=== PATIENT | male | born 1955 | race Caucasian/White ===

== ENCOUNTER 2017-02-21 09:09 | Outpatient (CLI) | payer OTHER ==
--- NOTE | ~2017-02-21 | HEMODYNAMI ---
PATIENT:GAGAN MIDDLETON MEDICAL RECORD: [id number] : 57 LOCATION:[facility] ADMISSION DATE: 02/21/17 Generatedon:02/21/201713:24 Patient name: GAGAN MIDDLETON Patient #: [id number] S SN: : 1955 Date of study: 02/21/2017 Page: Of Hemodynamic Procedure Report Patient Data Patient Demographics Procedure consent was obtained First Name: GAGAN Gender: Male Last Name: EMI : 1955 Middle Initial: R Age: 62 year(s) Patient #: [id number] Race: Additional ID: [id number] Contact details [address]: [address] [place] [address] State: [place] City: [place] Zip code: [address] Past Medical History Allergies: No known allergies Admission Admission Data Admission Date: 02/21/2017 Admission Time: 9:09 Lab Results Lab Result Date: 02/21/2017 Lab Result Time: 10:10 Biochemistry Name Units Result Min Max BUN mg/dl 10 --(-*--)-- 7 18 Creatinine mg/dl 1.4 --(----)*- 0.6 1.3 CBC Name Units Result Min Max Hematocrit % 41.9 -*(----)-- 42 54 Hemoglobin g/dl 14.3 --(*---)-- 13.5 17.5 Procedure Procedure Types Cath Procedure Diagnostic Procedure [facility] w/Coronaries PCI Procedure Coronary Stent Initial Miscellaneous Procedures Moderate Sedation up to 30 minutes Peripheral Cath Diagnostic Procedure Cath Peripheral Mxroj-Oxcaapg-Dtq-Off Procedure Description Procedure Date Procedure Date: 02/21/2017 Procedure Start Time: 12:52 Procedure End Time: 13:22 Procedure Staff Name Function Alex Metzger MD Performing Physician Hudson Worrell RN Nurse Abundio John RT Scrub Warner Hermosillo RT Monitor Procedure Data Cath Procedure Fluoroscopy Diagnostic fluoroscopy Total fluoroscopy Time: 5.6 time: 5.6 min min Diagnostic fluoroscopy Total fluoroscopy dose: dose: 466.78 mGy 466.78 mGy Contrast Material Contrast Material Type Amount (ml) Isovue 300 158 Entry Location Entry Primary Successful Side Size Upsize Upsize Entry Closure Succes sful Closure Location (Fr) 1 (Fr) 2 (Fr) Remarks Device Remarks Femoral Right 5 Fr 6 Fr Exoseal artery Short Estimated blood loss: 10 ml Diagnostic catheters Device Type Used For End Catheter Placement Cordis 5Fr 3DRC Catheter Procedure (MP) Cordis 5Fr JL 4.0 Procedure Catheter (MP) Cordis 5Fr Pigtail Procedure Catheter (MP) Cordis 5Fr Pigtail Procedure Catheter (MP) Procedure Complications No complications Procedure Medications Medication Administration Route Dosage Oxygen NC 2 l/min Heparin Flush Bag added to field 2 bags (1000units/500ml NS) 0.9% NaCl I.V. 100 ml/hr Fentanyl I.V. 50 mcg Versed I.V. 1 mg Heparin Bolus I.V. 4000 units Integrilin (Bolus I.V. 7.3 ml 2mg/ml) Fentanyl I.V. 50 mcg Versed I.V. 1 mg Plavix P.O. 600 mg Hemodynamics Rest HGB: 14.3 (g/dl) Heart Rate: 63 (bpm) Snapshots Pre Cath Intra NCS Post Cath Vital Signs Time Heart Resp SPO2 NIBP (mmHg) Rhythm Pain Sedation Rate (ipm) (%) Status Level (bpm) 12:39:49 64 17 98 127/69(103) NSR 0 (11) 10(A) , No pain 12:44:05 61 18 96 122/72(92) NSR 0 (11) 10(A) , No pain 12:48:23 59 17 96 114/66(89) NSR 0 (11) 10(A) , No pain 12:52:39 61 17 97 113/73(96) NSR 0 (11) 9(A) , No pain 12:56:55 63 17 94 116/66(96) NSR 0 (11) 9(A) , No pain 13:01:11 63 18 95 121/65(98) NSR 0 (11) 9(A) , No pain 13:05:37 66 17 95 103/48(72) NSR 0 (11) 9(A) , No pain 13:09:49 67 18 94 110/68(91) NSR 0 (11) 9(A) , No pain 13:14:03 70 18 93 110/70(92) NSR 0 (11) 9(A) , No pain 13:18:17 69 17 96 117/68(107) NSR 0 (11) 9(A) , No pain 13:22:27 70 14 94 116/73(92) NSR 0 (11) 9(A) , No pain Medications Time Medication Route Dose Verified Delivered Reason Notes Effectiveness by by 12:40:27 Oxygen NC 2 Alex Treviño Per physician l/min Domenica Worrell RN 12:48:22 Heparin Flush added 2 Alex Treviño used for Bag to bags Domenica Worrell RN procedure (1000units/500ml field NS) 12:50:25 0.9% NaCl I.V. 100 Alex Treviño Per physician ml/hr Domenica Worrell RN 12:50:32 Fentanyl I.V. 50 Alex Treviño for sedation mcg Domenica Worrell RN 12:50:39 Versed I.V. 1 mg Alex Treviño for sedation Domenica Worrell RN 13:03:40 Heparin Bolus I.V. 4000 Alex Treviño for units Domenica Worrell RN anticoagulation 13:03:53 Integrilin I.V. 7.3 Alex Treviño for (Bolus 2mg/ml) ml Domenica Worrell RN antiplatelet therapy 13:03:58 Fentanyl I.V. 50 Alex Treviño for sedation mcg Domenica Worrell RN 13:04:03 Versed I.V. 1 mg Alex Treviño for sedation Domenica Worrell RN 13:20:42 Plavix P.O. 600 Alex Treviño for mg Domenica Worrell RN antiplatelet therapy Procedure Log Time Note 12:21:55 Informed consent obtained and on chart 12:21:58 Diagnostic Cath Status : Elective 12:22:27 Abundio LEVINE(R) (CV) sent for patient. Start room use. 12:22:29 Time tracking: Regular hours 12:22:34 Plan of Care:Hemodynamics will remain stable., Cardiac rhythm will remain stable., Comfort level will be maintained., Respiratory function will remain adequate., Patient/ family verbilizes understanding of procedure., Procedure tolerated without complication., Recovers from procedure without complications.. 12:30:38 Patient received from Pre/Post Procedure Room to CCL 3 Alert and oriented. Tansferred to table in Supine position. 12:30:39 Warm blankets applied, and eric hugger turned on for patient comfort. 12:30:39 Correct patient and procedure confirmed by team. 12:30:51 ECG and BP/O2 sat monitors applied to patient. 12:31:35 H&P Date Dictated: 02/21/2017 New H&P dictated by physician.. 12::37 Pre-procedure instructions explained to patient. 12::38 Pre-op teaching completed and patient verbalized understanding. 12:31:40 Family in waiting room. 12:31:41 Patient NPO since Midnight. 12:38:37 Vital chart was started 12:40:27 Oxygen 2 l/min NC was administered by Hudson Worrell RN; Per physician; 12:42:40 Baseline sample Acquired. 12:42:45 Rhythm: sinus rhythm 12:42:56 Patient allergic to No known allergies 12:43:03 Is the patient allergic to Iodine/contrast media? No. 12:43:06 Is patient on blood thinner?No 12:43:07 Patient diabetic? No. 12:43:10 Previous problem with sedation/anesthesia? No ? 12:43:11 Snore? Yes 12:43:11 Sleep apnea? No 12:43:12 Deviated septum? No 12:43:15 Opens mouth fully? Yes 12:43:15 Sticks out tongue? Yes 12:43:19 Airway obstruction? Yes COPD 12:43:24 Dentures? Yes ? 12:48:22 Heparin Flush Bag (1000units/500ml NS) 2 bags added to field was administered by Hudson Worrell RN; used for procedure; 12:48:32 Pre procedure: right dorsailis pedis pulse 1+ Palpable, but thready & weak; easily obliterated 12:48:35 Patient pain scale 0/10 ?. 12:48:41 IV patent on arrival in left antecubital with 0.9% NaCl at [facility]. 12:49:31 Lab Result : BUN 10 mg/dl 12:49:31 Lab Result : Creatinine 1.4 mg/dl 12:49:34 Zero performed for pressure channel P1 12:49:39 Lab results completed and on chart. 12:49:41 Right groin area was prepped with chlora-prep and draped in sterile fashion 12:49:43 Sharps counted by scrub and verified by R.N. 12:49:43 Alarms reviewed by R. N. 12:49:48 Use device set Femoral Dx 12:49:49 Tegaderm 4 x 4 opened to sterile field. 12:49:50 Acist Hand Control opened to sterile field. 12:49:50 Acist Manifold opened to sterile field. 12:49:51 Acist Syringe opened to sterile field. 12:49:52 Bag Decanter opened to sterile field. 12:49:52 Medline Cath Pack opened to sterile field. 12:49:53 Terumo 5Fr Kingston Sheath opened to sterile field. 12:49:53 St Jas 260cm J .035 wire opened to sterile field. 12:49:54 Diagnostic Infinity 5Fr Multipack catheter opened to sterile field. 12:50:03 Physician arrived 12:50:03 --------ALL STOP TIME OUT------ 12:50:04 Final Timeout: patient, procedure, and site verified with staff and physician. All members of the team are in agreement. 12:50:05 Right groin site verified by team. 12:50:07 Physical assessment completed. ASA score P 2 - A patient with mild systemic disease as per Alex Metzger MD. 12:50:10 Sedation plan: IV Moderate Sedation Versed, Fentanyl 12:50:25 0.9% NaCl 100 ml/hr I.V. was administered by Hudson Worrell RN; Per physician; 12:50:32 Fentanyl 50 mcg I.V. was administered by Hudson Worrell RN; for sedation; 12:50:39 Versed 1 mg I.V. was administered by Hudson Worrell RN; for sedation; 12:50:42 Lab Result : Hemoglobin 14.3 g/dl 12:50:42 Lab Result : Hematocrit 41.9 % 12:52:04 Procedure started. 12:52:05 Full Disclosure recording started 12:52:08 Local anesthetic to right femoral artery with Lidocaine 2% by Alex Metzger MD.INITIAL ACCESS ONLY 12:52:15 A 5 Fr sheath was inserted into the Right Femoral artery 12:52:55 PERCUTANEOUS ENTRY 19GA needle opened to sterile field. 12:55:13 A Cordis 5Fr 3DRC Catheter (MP) was advanced over the wire and used for Procedure. 12:56:23 RCA angiography performed. 12:56:25 Catheter exchanged over wire. 12:56:27 A Cordis 5Fr JL 4.0 Catheter (MP) was advanced over the wire and used for Procedure. 12:56:41 LCA angiography performed. 12:57:50 Terumo 6Fr Kingston Sheath opened to sterile field. 12:57:51 Mejia Whisper J 300cm 0.014 guide wire opened to sterile field. 12:57:51 tab ticketbroker BasixCompak Inflation Kit opened to sterile field. 12:57:57 Catheter exchanged over wire. 12:58:01 A Cordis 5Fr Pigtail Catheter (MP) was advanced over the wire and used for Procedure. 12:58:41 [employer] Launcher 6Fr AR 2.0 SH guide catheter opened to sterile field. 12:59:19 LV gram done using WOODS 12:59:23 Injector settings: Ml/sec: 10, Volume: 20, 12:59:32 EF : 60 % 12:59:43 Catheter exchanged over wire. 12:59:54 Sheath upsized to a 6 Fr Short. 12:59:59 6 Fr ar 2 guide catheter was inserted over the wire 13:03:40 Heparin Bolus 4000 units I.V. was administered by Hudson Worrell RN; for anticoagulation; 13:03:53 Integrilin (Bolus 2mg/ml) 7.3 ml I.V. was administered by Hudson Worrell RN; for antiplatelet therapy; 13:03:58 Fentanyl 50 mcg I.V. was administered by Hudson Worrell RN; for sedation; 13:04:03 Versed 1 mg I.V. was administered by Hudson Worrell RN; for sedation; 13:05:06 whisper wire advanced. 13:05:08 Wire advanced across lesion. 13:05:58 Inflation number: 2 A Mozec Rx 2.5 x 20 balloon was prepped and advanced across the Dist RCA, then inflated to 13 PATY for 0:10 (min:sec). 13:06:04 Inflation number: 1 The Mozec Rx 2.5 x 20 balloon was reinflated across the Mid RCA, to 13 PATY for 0:10 (min:sec). 13:06:07 Balloon removed over the wire. 13:07:56 Inflation Number: 1 A Marlon OTW 2.5 x 18 stent was prepped and advanced across the Dist RCA. The stent was deployed at 21 PATY for 0:10 (min:sec). 13:08:08 Stent catheter was removed intact over wire. 13:09:22 Inflation Number: 2 A Marlon OTW 3.5 x 18 stent was prepped and advanced across the Mid RCA. The stent was deployed at 23 PATY for 0:10 (min:sec). 13:09:49 Stent catheter was removed intact over wire. 13:09:50 Wire removed. 13:09:50 Guide catheter removed. 13:10:03 A Cordis 5Fr Pigtail Catheter (MP) was advanced over the wire and used for Procedure. 13:12:15 Abdominal angiogram w/ runoff was performed. 13:13:17 Left leg runoff performed. 13:14:13 Right leg runoff performed. 13:14:22 Catheter removed. 13:14:33 Cordis 6Fr Exoseal opened to sterile field. 13:14:44 Sheath removed intact; hemostasis achieved with Exoseal to the Right Femoral artery. 13:14:46 Procedure ended.(Physican Out) 13:15:32 Fluoroscopy time 05.60 minutes. 13:15:40 Flurop Dose total: 466.78 13:15:40 Fluoroscopy dose: 466.78 mGy 13:17:30 Contrast amount:Isovue 300 158ml. 13:17:31 Sharps counted by scrub and verified by R.N. 13:17:34 Insertion/operative site no bleeding no hematoma. 13:17:38 Post-op/insertion site Right Femoral artery dressed using a 4 x 4 and Tegaderm. 13:17:44 Post right femoral artery:stable, soft, clean and dry 13:17:45 Post Procedure Pulses reassessed and unchanged 13:17:48 Post-procedure physical assessment completed. ASA score P 2 - A patient with mild systemic disease as per Alex Metzger MD. 13:17:50 Post procedure rhythm: unchanged. 13:17:52 Estimated blood loss: 10 ml 13:17:53 Post procedure instruction explained to patient.Patient verbalizes understanding. 13:17:53 Patient needs reinforcement of post procedure teaching. 13:18:26 Procedure type changed to Cath procedure, Diagnostic procedure, LHC, LHC w/Coronaries, PCI procedure, Coronary Stent Initial, Miscellaneous Procedures, Moderate Sedation up to 30 minutes, Peripheral Cath Diagnostic Procedure, Cath Peripheral, Yxgju-Gpbxlbd-Krk-Off 13:20:42 Plavix 600 mg P.O. was administered by Hudson Worrell RN; for antiplatelet therapy; 13:22:13 Procedure and supply charges have been captured, reviewed, submitted and are correct. 13:22:18 Procedure Complication : No complications 13:22:20 Vital chart was stopped 13:22:21 See physician's report for complete and final results. 13::22 Report given to Pre/Post Procedure Room. 13::26 Patient transfered to Pre/Post Procedure Room with Stretcher. 13:22:30 Procedure ended. 13:22:30 Full Disclosure recording stopped 13:23:08 End room use (Document Last) Intervention Summary Intervention Notes Time ActionType Lesion and Equipment Action# Pressure Duration Attributes Used 13:05:58 Inflate Dist RCA Mozec Rx 2 13 00:10 balloon 2.5 x 20 balloon 13:06:04 Reinflate Mid RCA Mozec Rx 1 13 00:10 balloon 2.5 x 20 balloon 13:07:56 Place stent Dist RCA Marlon OTW 1 21 00:10 2.5 x 18 stent 13:09:22 Place stent Mid RCA Marlon OTW 2 23 00:10 3.5 x 18 stent Device Usage Item Name Manufacture Quantity Catalog Hospital Part Current Minim al Lot# / Number Charge Number Stock Stock Serial# Code Tegaderm 4 x 3M 1 [id number] 470383 736334 5 4 Acist Hand Acist 1 93599 016607 348954 582758 5 Control Medical Systems Inc Acist Acist 1 13627 803261 763194 744795 5 Manifold Medical Systems Inc Acist Acist 1 70088 924001 875416 056953 20 Syringe Medical Systems Inc Bag Decanter Microtek 1 2002S 599485 36242 329322 5 Medical Inc. Medline Cath Cardinal 1 [id number] 992972 65457 548688 5 Pack Health Terumo 5Fr Terumo 1 [id number] 244979 981832 717995 [address] Jas 1 539379 758045 253584 333892 30 260cm J .035 wire Diagnostic Cardinal 1 [id number] 415077 27157 961447 30 Infinity 5Fr Health Multipack catheter PERCUTANEOUS Cook Medical 1 [id number] 371119 745976 5 ENTRY 19GA needle Cordis 5Fr Cardinal 1 [id number] 5 3DRC Health Catheter (MP) Cordis 5Fr Cardinal 1 049680 5 JL 4.0 Health Catheter (MP) Terumo 6Fr Terumo 1 [id number] 203059 071931 551087 40 Kingston Sheath Mejia Mejia 1 [id number] 289830 297065 064289 5 Whisper J Vascular 300cm 0.014 guide wire Merit Merit 1 [id number] 505314 239724 285394 15 BigTwist Medical Inflation Kit Cordis 5Fr Cardinal 1 898426 5 Pigtail Health Catheter (MP) Medtronic Medtronic 1 [id number] 267314 32968 841915 1 Launcher 6Fr AR 2.0 SH guide catheter Mozec Rx 2.5 Cardinal 1 [id number] 178806 82816 794598 5 UMOA88 x 20 balloon Health Mayview OTW 2.5 Medtronic 1 [id number] 426494 59659 477480 5 [id number] x 18 stent Marlon OTW 3.5 Medtronic 1 [id number] 130146 4385028 237333 5 [id number] x 18 stent Cordis 6Fr Cardinal 1 [id number] 451839 080633 276013 10 [facility] OGPlanet Signature Audit [place] Stage Time Signature Unsigned Intra-Procedure 02/21/2017 Warner Hermosillo 1:24:26 PM RT(R) Signatures Monitor : Warner Hermosillo RT Signature : Date : Time : [facility] [address] [place] [address]
[~2017-02-21 09:09] MED LIST: ADVAIR HFA [SP]12 GM INH; ALDACTONE25 MG PO; ANORO ELLIPTA1 EACH INH; ASPIRIN 81 MG E81 MG PO; ATIVAN1 MG PO; CARAFATE1 G PO; CARAFATE1 G/10 ML PO; CARDURA4 MG PO; CELEXA40 MG PO; CYMBALTA60 MG PO; DECADRON4 MG PO; EFFEXOR75 MG PO; FLOMAX0.4 MG PO; IPRAT-ALBUT 0.5-3 ML NEB; LASIX20 MG PO; LEVAQUIN750 MG PO; LUNESTA1 MG PO; LYRICA50 MG PO; MEDROL DOSE PACK4 MG PO; MUCINEX600 MG PO; MULTI-DAY VITAM1 TAB PO; NIFEDIPINE ER60 MG; NORCO 10/325 TA1 TA1 PO; PEPCID40 MG PO; PERCOCET 10/3251 TA1 PO; PERFOROMIS20 MCG/21 NEB; PLAVIX75 MG PO; PRAVACHOL40 MG PO; PROTONIX40 MG PO; PROVENTIL HFA6.7 GM INH; PROZAC20 MG PO; PULMICORT FLEX90 MCG INH; PULMICORT0.5 MG/21 INH; QVAR8.7 G1 INH; RANEXA500 MG PO; ROBAXIN-750750 MG PO; SINGULAIR10 MG PO; SPIRIVA18 MCG INH; TOPROL XL25 MG PO; TRIBENZOR 20-51 EACH PO; TRIBENZOR 40-11 EAC1 PO; VENTOLIN HFA18 GM INH; VITAMIN B-1100 M1 PO; ZANTAC150 MG PO
[2017-02-21] MEDS ORDERED: PERCOCET 10/3251 TA1 PO (09:57)
[2017-02-21] MEDS ORDERED: ALDACTONE25 MG PO (10:00)
[2017-02-21 10:13] VITALS: BP 90/54; BMI 26.9
[2017-02-21] MEDS ORDERED: ROBAXIN500 MG PO (10:20)
[2017-02-21 10:26] LABS: BASOPHILS 0.3 % (0-2); EOSINOPHILS 2.2 % (0-7); HEMATOCRIT 41.9 % (42.0-54.0); HEMOGLOBIN 14.3 g/dL (13.5-17.5); IMMATURE GRANULOCYTES 1.6 % (0-5); LYMPHOCYTES 22.1 % (15-50); MCH 33.5 pg (26.0-34.0); MCHC 34.1 g/dL (31.0-37.0); MCV 98.1 fL (80.0-100.0); MEAN PLATELET VOLUME 10.2 fL (7.4-10.4); MONOCYTES 7.6 % (2-11); NEUTROPHILS 66.2 % (40-80); PLATELET COUNT 177 10x3/uL (130-400); RBC 4.27 10x6/uL (4.20-6.10); RDW 16.2 % (11.5-14.5); WBC 9.9 10x3/uL (4.8-10.8)
[2017-02-21 10:40] LABS: ANION GAP 12.4 mmol/L (8-16); CALCIUM 7.8 mg/dL (8.5-10.1); CARBON DIOXIDE 30.6 mmol/L (21.0-32.0); CREATININE - SERUM 1.4 mg/dL (0.6-1.3)
[2017-02-21] MEDS ORDERED: PLAVIX75 MG PO (13:37)
--- NOTE | 2017-02-21 13:42 | NUR ---
RECIEVED TO ROOM VIA STRETCHER FROM TRANSMISSIONS SYSTEMS OPERATOR WITH 6 FR EXOSEAL R/GROIN CDI NO BLEEDING NO HEMATOMA NOTED. INSTRUCTED PATIENT TO KEEP HEAD FLAT ON PILLOW WITH RLE STRAIGHT. REPORTS OF 2 STENTS TO THE RCA AND PATIENT WILL RETURN MONDAY.
--- NOTE | 2017-02-21 13:53 | NUR ---
VSS WITH CHEST PAIN DENIED 6 FR EXOSEAL R/GROIN CDI NO BLEEDING NO HEMATOMA NOTED. FAMILY AT SIDE
--- NOTE | 2017-02-21 13:55 | NUR ---
ANSWERED CALL TO ROOM WITH PATIENT C/O OF NAUSEA. ZOFRAN 4 MG GIVEN IV.
--- NOTE | 2017-02-21 14:41 | NUR ---
CHEST PAIN DENIED WITH R/GROIN CDI NO BLEEDING NO HEMATOMA NOTED. SANDWICH AND SODA TO BEDSIDE WITH TO ASSIST.
--- NOTE | 2017-02-21 14:41 | NUR ---
LEFT VIA WC TO PARKING FOR TRANSPORT HOME NO DISTRESS PAIN DENIED R/GROIN CDI
--- NOTE | 2017-02-21 15:42 | NUR ---
R/GROIN CDI NO BLEEDING NO HEMATOMA NOTED VSS WITH NEEDS DENIED
--- NOTE | 2017-02-21 17:00 | NUR ---
HOB ELEVATED 30 DEGREES. RIGHT GROIN 6F EXOSEAL CDI, NO BLEEDING NOTED.
--- NOTE | 2017-02-21 17:19 | NUR ---
LEFT PIV D/C'D WITH CATHETER INTACT, BAND AID TO SITE. UP TO BEDSIDE TO GET DRESSED.
--- NOTE | 2017-02-21 17:32 | NUR ---
DISCHARGE INSTRUCTIONS GIVEN, VERBALIZED UNDERSTANDING. TAKEN OUT VIA WHEELCHAIR BY CATH TRANSACTION MANAGER. LEFT FACILITY WITH FAMILY MEMBER AND ALL PERSONAL BELONGINGS.
--- NOTE | 2017-02-24 16:47 | HP ---
PATIENT: GAGAN SETHI MEDICAL RECORD: [id number] ACCOUNT: [id number] LOCATION:[facility] : 57 ADMISSION DATE: 02/21/17 HISTORY AND PHYSICAL EXAMINATION ADMITTING DIAGNOSES: 1. Unstable angina. 2. Coronary artery disease. 3. Previous PTCA stent multivessel. 4. Chronic obstructive pulmonary disease. 5. Hypertension. 6. Hyperlipidemia. HISTORY OF PRESENT ILLNESS: Mr. Sethi has been having increasing episodes of chest pain, chest discomfort compatible with angina just like his previous angina, status post previous multivessel PTCA stent over the past few years. He as well has severe COPD. His shortness of breath has worsened. PHYSICAL EXAMINATION: GENERAL APPEARANCE: Well-nourished, well-developed, appears stated age. Level of distress, comfortable. PSYCHIATRIC: Mental status, alert, normal affect. Orientation, oriented to time, place and person. EYES: Lids and conjunctiva, noninjected. No discharge, no pallor. ENT: Lips, teeth, gums, normal dentition. Oropharynx, no cyanosis, no pallor. NECK: Carotid arteries, bilateral normal upstroke, no bruits, no thrills. JUGULAR VEINS: No jugular venous pressure or distention. CERVICAL LYMPH NODES: Nontender, nonenlarged. THYROID: Not enlarged. Nontender. No nodules. LUNGS: Respiratory effort, unlabored. CHEST: Normal curvature. No thoracic deformity. No chest wall tenderness. Percussion, resonant. Auscultation, clear. No wheezes, no rales, no rhonchi. CARDIOVASCULAR: Precordial exam, nondisplaced. No heaves or pericardial thrills. Rate and rhythm, regular. Heart sounds, normal S1, normal S2. No S3, no gallop, no rub. Systolic murmur, not heard. Diastolic murmur, not heard. EXTREMITIES: No cyanosis, no edema. Peripheral pulses, full and equal in all extremities, except as noted. No bruits appreciated. ABDOMEN: Soft, nondistended. Normal aorta. No bruit. Nontender. No masses. Liver, nontender, no hepatomegaly. Spleen, nontender, no splenomegaly. MUSCULOSKELETAL: No joint tenderness. No joint swelling. No erythema. NEUROLOGICAL: Normal gait, normal strength, normal tone. SKIN: Warm and dry. REVIEW OF SYSTEMS: The patient reports easy bruising but reports no swollen glands. The patient reports no fever, no night sweats, no significant weight gain, no significant weight loss. No significant exercise tolerance. The patient reports no dry eyes, no irritation, no vision change. Patient reports no difficulty hearing and no ear pain. Patient reports no frequent nose bleeds or nose and sinus problems. Patient reports on arm pain on exertion. No shortness of breath while lying down. No history of heart murmur. Patient reports no cough, no wheezing or coughing up blood. Patient reports no abdominal pain, no vomiting. Normal appetite. No diarrhea and not vomiting blood. No nausea and no constipation. Patient reports no incontinence. No difficulty urinating. No hematuria. No increased frequency. Patient reports no muscle aches. No weakness, no arthralgias, no back pain. No swelling of the HISTORY AND PHYSICAL [id number] GAGAN SETHI extremities. Patient reports no abnormal mole, no jaundice, no rashes. Reports no loss of consciousness. No weakness and no numbness. No seizures, dizziness, or headaches. The patient reports no depression, no sleep disturbance, feeling safe in a relationship and no alcohol abuse. Patient reports on fatigue. Reports no runny nose or sinus pressure. No itching, no hives, and no frequent sneezing. OVERALL IMPRESSION: Increasing anginal symptomatology. Most likely has recurrent hemodynamically significant coronary artery disease. We will proceed with coronary angiography. Further care depends upon findings of the angiography. TRANSINT:[id number] Voice Confirmation ID: [id number] DOCUMENT ID: [id number] ROXANNE MELCHOR MD at 1647 CC: [id number] DICTATION DATE: 02/21/1743 PLASTIC CARD GRADER CARDROOM: 02/21/17 0858 DEP CLI 02/21/17 [address] [id number] [place] [address]
--- NOTE | 2017-03-24 16:56 | OP ---
PATIENT NAME: GAGAN MIDDLETON MEDICAL RECORD: [id number] :57 LOCATION:D.CAT ADMISSION DATE: SURGEON: ROXANNE MELCHOR MD DATE OF OPERATION: 02/21/2017 PROCEDURE: 1. Aortofemoral runoff. 2. Abdominal aortography. INDICATION: Claudication and peripheral vascular disease. PROCEDURE IN DETAIL: After informed consent was obtained and after detailed explanation of risks, benefits as well as alternative therapies, the patient elected to proceed with angiogram and aortofemoral runoff. The catheter was advanced to the aorta, pulled down for aortofemoral runoff. FINDINGS: The abdominal aortography reveals no significant abdominal aortic disease, no renal artery stenosis. No dissection or aneurysm formation. RIGHT LEG: A. Iliac: The common iliac has moderate irregularities, but no flow-limiting stenosis. Internal and external iliacs have only mild irregularities. B. Femoral system: The common superficial and deep femoral have moderate irregularities, but no flow-limiting stenosis. C. Popliteal and infrapopliteal vessels are patent, although diffusely diseased, with 3 vessels runoff to the foot. LEFT LEG: A. Iliac: The common iliac has moderate irregularities, but no flow-limiting stenosis. Internal and external iliacs have only mild irregularities. B. Femoral system: The common superficial and deep femoral have moderate irregularities, but no flow-limiting stenosis. C. Popliteal and infrapopliteal vessels are patent, although diffusely diseased, with 3 vessels runoff to the foot. OVERALL IMPRESSION: Moderate disease of the common iliacs, but no flow-limiting stenosis. No disease elsewise. Continue medical management of peripheral vascular disease and peripheral risk factors. TRANSINT:[id number] Voice Confirmation ID: [id number] DOCUMENT ID: [id number] ROXANNE MELCHOR MD at 1656 CC: [id number] DICTATION DATE: 03/09/17 1235 VOCATIONAL HORTICULTURE INSTRUCTOR: 03/09/17 1251 [facility] CLI 02/21/17 [place] [id number]
--- NOTE | 2017-03-24 16:56 | OP ---
PATIENT NAME: GAGAN MIDDLETON MEDICAL RECORD: [id number] :57 LOCATION:D.CAT ADMISSION DATE: SURGEON: ROXANNE MELCHOR MD DATE OF OPERATION: 02/21/2017 PROCEDURES: 1. PTCA stent to RCA. 2. Left heart catheterization. 3. Selective coronary angiography. 4. Left ventriculogram. INDICATION: Angina and coronary artery disease. PROCEDURE IN DETAIL: After informed consent was obtained and after detailed explanation of risks, benefits as well as alternative therapies, the patient elected to proceed with angiogram and angioplasty. The right femoral area was prepped and draped in normal sterile fashion. The right femoral artery was cannulated via modified Seldinger technique with placement of 6-Filipino sheath. All catheters exchanged through this sheath. FINDINGS: Left ventriculogram was performed in standard 30-degree WOODS view, reveals preserved cardiac wall motion, ejection fraction 50%. SELECTIVE CORONARY ANGIOGRAPHY: 1. Left main showed no significant angiographic disease. 2. Left anterior descending has previously placed stents, these are patent with no significant restenosis. No disease elsewise throughout the LAD or its branches. 3. Left circumflex has laga-db-romjewjr irregularities, but no flow-limiting stenosis. 4. The right coronary has multiple previously placed stents. There are 2 areas of 99% stenosis. PTCA STENT OF THE RIGHT CORONARY ARTERY: Stents used were 3.5 x 18 mm Marlon and 2.5 x 18 mm Marlon. Result was 0% residual stenosis. OVERALL IMPRESSION: Successful percutaneous transluminal coronary angioplasty stent of the right coronary artery going from 99% initial stenosis to 0% residual. TRANSINT:[id number] Voice Confirmation ID: [id number] DOCUMENT ID: [id number] ROXANNE MELCHOR MD at 1656 CC: [id number] DICTATION DATE: 03/09/17 1235 FORESTRY PILOT: 03/09/17 1251 DEP CLI 02/21/17 [place] [id number] [place] [address]
== END 2017-02-21 17:32 | disposition home or self-care (01) ==
LOC: D.CATH 09:09
PROVIDERS: Internal Medicine Interventional Cardiology
DX: I25.110 Atherosclerotic heart disease of native coronary artery with unstable angina pectoris (principal); I10 Essential (primary) hypertension; E78.5 Hyperlipidemia, unspecified; J44.9 Chronic obstructive pulmonary disease, unspecified; Z95.5 Presence of coronary angioplasty implant and graft; Z01.812 Encounter for preprocedural laboratory examination

== ENCOUNTER 2017-03-01 08:57 | Outpatient (CLI) | payer OTHER ==
--- NOTE | ~2017-03-01 | HEMODYNAMI ---
PATIENT:GAGAN MIDDLETON MEDICAL RECORD: [id number] : 57 LOCATION:[facility] ADMISSION DATE: 03/01/17 Generatedon:03/01/201711:24 Patient name: GAGAN MIDDLETON Patient #: [id number] S SN: [id number] : 1955 Date of study: 03/01/2017 Page: Of Hemodynamic Procedure Report Patient Data Patient Demographics Procedure consent was obtained First Name: GAGAN Gender: Male Last Name: EMI : 1955 Middle Initial: R Age: 62 year(s) Patient #: [id number] Race: SSN: [id number] Additional ID: [id number] Contact details Address: [address] [place] [address] State: [place] City: [place] Zip code: [address] Past Medical History Allergies: No known allergies Admission Admission Data Admission Date: 03/01/2017 Admission Time: 8:57 Arrival Date: 03/01/2017 Arrival Time: 11:00 Admit Source: Other Insurance Payor: Private health insurance Lab Results Lab Result Date: 03/01/2017 Lab Result Time: 0:00 Biochemistry Name Units Result Min Max BUN mg/dl 11 --(-*--)-- 7 18 Creatinine mg/dl 0.9 --(-*--)-- 0.6 1.3 CBC Name Units Result Min Max Hemoglobin g/dl 15.3 --(-*--)-- 13.5 17.5 Procedure Procedure Types Cath Procedure PCI Procedure Coronary Stent Initial Miscellaneous Procedures Moderate Sedation up to 15 minutes Procedure Description Procedure Date Procedure Date: 03/01/2017 Procedure Start Time: 11:12 Procedure End Time: 11:20 Procedure Staff Name Function Alex Metzger MD Performing Physician Aranza Anglin RT Scrub Bunny Fan RN Nurse Anastacia Perry RT Monitor Indication CAD Procedure Data Cath Procedure Fluoroscopy Diagnostic fluoroscopy Total fluoroscopy Time: 1.9 time: 1.9 min min Diagnostic fluoroscopy Total fluoroscopy dose: 162 dose: 162 mGy mGy Contrast Material Contrast Material Type Amount (ml) Isovue 300 42 Entry Location Entry Primary Successful Side Size Upsize Upsize Entry Closure Succes sful Closure Location (Fr) 1 (Fr) 2 (Fr) Remarks Device Remarks Femoral Left 6 Fr Exoseal artery Short Estimated blood loss: 5 ml Diagnostic catheters Device Type Used For End Catheter Placement Diagnostic Infinity 5Fr Right Coronary 3DRC catheter Angiography Procedure Complications No complications Procedure Medications Medication Administration Route Dosage Oxygen NC 3 l/min Lidocaine 2% added to field 20 Heparin Flush Bag added to field 2 bags (1000units/500ml NS) 0.9% NaCl I.V. 100 ml/hr Versed I.V. 1 mg Fentanyl I.V. 50 mcg Versed I.V. 1 mg Fentanyl I.V. 50 mcg Heparin Bolus I.V. 4000 units Fentanyl I.V. 25 mcg Hemodynamics Rest HGB: 15.3 (g/dl) Heart Rate: 67 (bpm) Snapshots Pre Cath Intra NCS Post Cath Vital Signs Time Heart Resp SPO2 NIBP (mmHg) Rhythm Pain Sedation Rate (ipm) (%) Status Level (bpm) 10:38:17 66 19 97 167/98(139) NSR 0 (11) 10(A) , No pain 10:42:33 67 25 97 153/89(141) NSR 0 (11) 10(A) , No pain 10:46:52 67 17 98 158/98(134) NSR 0 (11) 10(A) , No pain 10:51:10 68 17 97 160/88(133) NSR 0 (11) 10(A) , No pain 10:55:30 65 17 96 154/89(126) NSR 0 (11) 10(A) , No pain 10:59:46 68 18 96 144/89(124) NSR 0 (11) 10(A) , No pain 11:04:04 65 17 96 147/91(125) NSR 0 (11) 10(A) , No pain 11:08:26 65 19 97 150/85(119) NSR 0 (11) 10(A) , No pain 11:12:46 64 18 97 150/91(123) NSR 0 (11) 9(A) , No pain 11:17:00 67 15 96 137/86(117) NSR 0 (11) 10(A) , No pain 11:24:04 70 15 97 144/84(120) NSR 0 (11) 10(A) , No pain Medications Time Medication Route Dose Verified Delivered Reason Notes Effectiveness by by 10:53:41 Oxygen NC 3 Alex Buffie used for l/min Domenica Fan RN procedure 10:53:47 Lidocaine 2% added 20ml Alex Alex for local to vial Domenica Metzger MD anesthetic field 10:53:55 Heparin Flush added 2 Alex Alex used for Bag to bags Domenica Metzger MD procedure (1000units/500ml field NS) 10:54:05 0.9% NaCl I.V. 100 Alex Buffie Per physician ml/hr Domenica Fan RN 11:08:53 Fentanyl I.V. 25 Alex Buffie for sedation mcg Domenica Fan RN 11:11:51 Versed I.V. 1 mg Alex Buffie for sedation Domenica Fan RN 11:11:59 Fentanyl I.V. 50 Alex Buffie for sedation mcg Domenica Fan RN 11:14:00 Versed I.V. 1 mg Alexzeferino Hollis for sedation Domenica Fan RN 11:14:04 Fentanyl I.V. 50 Alex Hollis for sedation mcg Domenica Fan RN 11:15:14 Heparin Bolus I.V. 4000 Alexzeferino Emie for verifi ed units Domenica Fan RN anticoagulation with dr metzger Procedure Log Time Note 10:15:41 Aranza Counts RT(R) sent for patient. Start room use. 10:23:08 Informed consent obtained and on chart 10:23:27 Admit Source: Other 10:23:31 Arrival Date: 03/01/2017 11:00:00 AM 10:23:42 Insurance Payor : Private health insurance 10:26:05 Lab Result : Hemoglobin 15.3 g/dl 10:26:05 Lab Result : BUN 11 mg/dl 10:26:05 Lab Result : Creatinine 0.9 mg/dl 10:26:09 Diagnostic Cath Status : Elective 10:26:36 Indication : CAD 10:26:47 Time tracking: Regular hours 10:26:51 Plan of Care:Hemodynamics will remain stable., Cardiac rhythm will remain stable., Comfort level will be maintained., Respiratory function will remain adequate., Patient/ family verbilizes understanding of procedure., Procedure tolerated without complication., Recovers from procedure without complications.. 10:26:57 Patient received from Pre/Post Procedure Room to CCL 3 Alert and oriented. Tansferred to table in Supine position. 10:26:58 Warm blankets applied, and eric hugger turned on for patient comfort. 10:26:59 Correct patient and procedure confirmed by team. 10:27:00 ECG and BP/O2 sat monitors applied to patient. 10:37:00 Baseline sample Acquired. 10:37:00 Vital chart was started 10:37:04 Rhythm: sinus rhythm 10:37:06 Full Disclosure recording started 10:37:11 H&P Date Dictated: 03/01/2017 H&P Addendum completed by physician on day of procedure. (MUST COMPLETE FOR ALL OUTPATIENTS), New H&P dictated by physician.. 10:37:12 Pre-procedure instructions explained to patient. 10:37:13 Pre-op teaching completed and patient verbalized understanding. 10:37:14 Family in waiting room. 10:37:15 Patient NPO since Midnight. 10:37:23 Is the patient allergic to Iodine/contrast media? No. 10:37:24 Was the patient premedicated? No 10:37:25 Is patient on blood thinner?Yes 10:37:28 ACC The patient was administered the following blood thiners within the last 24 hours: ACCPlavix 10:37:30 Patient diabetic? No. 10:37:41 Previous problem with sedation/anesthesia? Yes O2 drops 10:38:25 Snore? Yes 10:38:25 Sleep apnea? Yes 10:38:27 Deviated septum? No 10:38:28 Opens mouth fully? Yes 10:38:28 Sticks out tongue? Yes 10:38:35 Airway obstruction? Yes copd emphysema 10:38:40 Dentures? Yes in tight 10:38:43 Pre procedure: right dorsailis pedis pulse 1+ Palpable, but thready & weak; easily obliterated 10:38:45 Pre procedure: left dorsailis pedis pulse 1+ Palpable, but thready & weak; easily obliterated 10:38:47 Patient pain scale 0/10 ?. 10:38:56 IV patent on arrival in right forearm with 0.9% NaCl at O. 10:38:58 Lab results completed and on chart. 10:39:02 Left groin area was prepped with chlora-prep and draped in sterile fashion 10:39:03 Alarms reviewed by R. N. 10:39:03 Sharps counted by scrub and verified by R.N. 10:41:56 Baseline sample Acquired. 10:51:53 Zero performed for pressure channel P1 10:53:41 Oxygen 3 l/min NC was administered by Bunny Fan RN; used for procedure; 10:53:47 Lidocaine 2% 20ml vial added to field was administered by Alex Metzger MD; for local anesthetic; 10:53:55 Heparin Flush Bag (1000units/500ml NS) 2 bags added to field was administered by Alex Metzger MD; used for procedure; 10:54:05 0.9% NaCl 100 ml/hr I.V. was administered by Bunny Fan RN; Per physician; 11:01:49 PERCUTANEOUS ENTRY 19GA needle opened to sterile field. 11:06:20 Physician arrived 11:06:20 --------ALL STOP TIME OUT------ 11:06:21 Final Timeout: patient, procedure, and site verified with staff and physician. All members of the team are in agreement. 11:06:23 Left groin site verified by team. 11:06:27 Physical assessment completed. ASA score P 3 - A patient with severe systemic disease as per Alex Metzger MD. 11:06:30 Sedation plan: IV Moderate Sedation Versed, Fentanyl 11:06:39 Use device set Femoral PCI 11:06:52 Cordis 6FR XBLAD 3.5 guide catheter opened to sterile field. 11:06:53 Mejia Whisper J 300cm 0.014 guide wire opened to sterile field. 11:06:53 Tegaderm 4 x 4 opened to sterile field. 11:06:55 Merit BasixCompak Inflation Kit opened to sterile field. 11:06:55 Acist Manifold opened to sterile field. 11:06:56 St Jas 260cm J .035 wire opened to sterile field. 11:06:57 Medline Cath Pack opened to sterile field. 11:06:57 Terumo 6Fr [place] Sheath opened to sterile field. 11:06:58 Bag Decanter opened to sterile field. 11:06:59 Acist Syringe opened to sterile field. 11:07:00 Acist Hand Control opened to sterile field. 11:08:53 Fentanyl 25 mcg I.V. was administered by Bunny Fan RN; for sedation; 11:11:51 Versed 1 mg I.V. was administered by Bunny Fan RN; for sedation; 11:11:59 Fentanyl 50 mcg I.V. was administered by Bunny Fan RN; for sedation; 11:12:12 Cordis 6FR XBLAD 3.5 SH guide catheter opened to sterile field. 11:12:38 Procedure started. 11:12:45 Local anesthetic to left femerol artery with Lidocaine 2% by Alex Metzger MD.INITIAL ACCESS ONLY 11:12:56 A 6 Fr Short sheath was inserted into the Left Femoral artery 11:13:40 6 Fr xblad 3.5 sh guide catheter was inserted over the wire 11:14:00 Versed 1 mg I.V. was administered by Bunny Fan RN; for sedation; 11:14:04 Fentanyl 50 mcg I.V. was administered by Bunny Fan RN; for sedation; 11:15:03 LCA angiography performed. 11:15:14 Heparin Bolus 4000 units I.V. was administered by Bunny Fan RN; for anticoagulation; verified with dr metzger 11:16:15 whisper wire advanced. 11:16:25 Wire advanced across lesion. 11:16:44 Inflation Number: 1 A Marlon OTW 2.5 x 15 stent was prepped and advanced across the Mid LAD. The stent was deployed at 17 PATY for 0:10 (min:sec). 11:17:13 Stent catheter was removed intact over wire. 11:17:14 Wire removed. 11:17:14 Guide catheter removed. 11:17:26 A Diagnostic Infinity 5Fr 3DRC catheter was advanced over the wire and used for Right Coronary Angiography. 11:18:08 RCA angiography performed. 11:18:11 Injector settings: Ml/sec: 3, Volume: 6, 11:18:23 Cordis 6Fr Exoseal opened to sterile field. 11:18:32 Sheath removed intact; hemostasis achieved with Exoseal to the Left Femoral artery. 11:18:34 Procedure ended.(Physican Out) 11:18:53 Fluoroscopy time 01.90 minutes. 11:18:57 Flurop Dose total: 162 11:18:57 Fluoroscopy dose: 162 mGy 11:19:10 Contrast amount:Isovue 300 42ml. 11:19:11 Sharps counted by scrub and verified by R.N. 11:19:23 Post-op/insertion site Left Femoral artery dressed using a 4 x 4 and Tegaderm. 11:19:28 Post left femerol artery:stable 11:19:29 Post Procedure Pulses reassessed and unchanged 11:19:32 Post procedure rhythm: unchanged. 11:19:34 Estimated blood loss: 5 ml 11:19:36 Post procedure instruction explained to patient.Patient verbalizes understanding. 11:19:36 Patient needs reinforcement of post procedure teaching. 11:19:51 Procedure type changed to Cath procedure, PCI procedure, Coronary Stent Initial, Miscellaneous Procedures, Moderate Sedation up to 15 minutes 11:19:52 Procedure and supply charges have been captured, reviewed, submitted and are correct. 11:19:56 Procedure Complication : No complications 11:19:59 Vital chart was stopped 11:19:59 See physician's report for complete and final results. 11:20:08 Report given to Pre/Post Procedure Room. 11:20:10 Patient transfered to Pre/Post Procedure Room with Stretcher. 11:20:12 Procedure ended. 11:20:12 Full Disclosure recording stopped 11:20:18 ACC-PCI Only Patient was given prescriptions, or instructed by Alex Metzger MD to start/continue the following medications upon discharge: Plavix 11:20:20 End room use (Document Last) Intervention Summary Intervention Notes Time ActionType Lesion and Equipment Action# Pressure Duration Attributes Used 11:16:44 Place stent Mid LAD Marlon OTW 1 17 00:10 2.5 x 15 stent Device Usage Item Name Manufacture Quantity Catalog Hospital Part Current Minima l Lot# / Number Charge Number Stock Stock Serial# Code PERCUTANEOUS Cook Medical 1 [id number] 5 [id number] ENTRY 19GA needle Cordis 6FR Cardinal 1 [id number] 352593 825846 583303 10 XBLAD 3.5 Health guide catheter Mejia Mejia 1 [id number] 247722 996350 978577 5 Whisper J Vascular 300cm 0.014 guide wire Tegaderm 4 x 3M 1 1626W 592010 139826 195805 5 4 Merit Merit 1 [id number] 887207 795576 795361 15 BasixCompak Medical Inflation Kit Acist Acist 1 81621 593302 887880 615584 [address] Jas [address] Jas 1 899289 379323 495092 439247 30 260cm J .035 wire Medline Cath Cardinal 1 [id number] 433954 20415 812529 5 Pack Health Terumo 6Fr Terumo 1 [id number] 393147 061375 781512 40 Thomaston Sheath Bag Decanter Microtek 1 2002S 075050 96558 422913 5 Medical Inc. Acist Acist 1 21197 398843 255567 016958 20 Syringe Medical Systems Inc Acist Hand Acist 1 52388 283622 850859 366397 5 Control Medical Systems Inc Cordis 6FR Cardinal 1 [id number] 123315 142270 188749 3 XBLAD 3.5 Health guide catheter Marlon OTW 2.5 Medtronic 1 [id number] 872004 83725 819686 5 [id number] x 15 stent Diagnostic Cardinal 1 [id number] 545486 956778 726541 9 Infinity 5Fr Health 3DRC catheter Cordis 6Fr Cardinal 1 EX600 090950 979560 795888 [address] [facility] [employer] Signature Audit [place] Stage Time Signature Unsigned Intra-Procedure 03/01/2017 Anastacia Perry 11:24:25 AM RT(R) Signatures Monitor : Anastacia Perry RT Signature : Date : Time : [facility] [address] [place] [address]
[~2017-03-01 08:57] MED LIST changes: +ROBAXIN500 MG PO
[2017-03-01] MEDS ORDERED: ANORO ELLIPTA1 EACH INH (09:05)
[2017-03-01] MEDS ORDERED: QVAR8.7 G1 INH (09:05)
[2017-03-01] MEDS ORDERED: PROAIR HFA8.5 GM INH (09:05)
[2017-03-01] MEDS ORDERED: IPRAT-ALBUT 0.5-3 ML UPD (09:06)
[2017-03-01] MEDS ORDERED: ATIVAN1 MG PO (09:12)
[2017-03-01] MEDS ORDERED: FLORINEF 0.1 M0.1 MG PO (09:12)
[2017-03-01 09:25] VITALS: BP 185/81; BMI 26.6
[2017-03-01 09:36] LABS: BASOPHILS 0.4 % (0-2); EOSINOPHILS 1.4 % (0-7); HEMATOCRIT 44.4 % (42.0-54.0); HEMOGLOBIN 15.3 g/dL (13.5-17.5); IMMATURE GRANULOCYTES 1.4 % (0-5); LYMPHOCYTES 19.7 % (15-50); MCHC 34.5 g/dL (31.0-37.0); MCV 95.7 fL (80.0-100.0); MEAN PLATELET VOLUME 12.2 fL (7.4-10.4); MONOCYTES 8.7 % (2-11); NEUTROPHILS 68.4 % (40-80); RBC 4.64 10x6/uL (4.20-6.10); RDW 15.9 % (11.5-14.5); WBC 7.3 10x3/uL (4.8-10.8)
[2017-03-01 09:49] LABS: PLATELET COUNT 256 10x3/uL (130-400)
[2017-03-01 10:20] LABS: CALC OSMOLALITY 268 mosm/kg (275-300); CALCIUM 8.1 mg/dL (8.5-10.1); CARBON DIOXIDE 28.7 mmol/L (21.0-32.0); CHLORIDE - SERUM 100 mmol/L (98-107); CREATININE - SERUM 0.9 mg/dL (0.6-1.3); GLUCOSE 135 mg/dL (74-106); SODIUM 134 mmol/L (136-145); UREA NITROGEN 11 mg/dL (7-18); eGFR NON AFRICAN AMERICAN > 90 mL/min (90-120)
--- NOTE | 2017-03-01 12:37 | NUR ---
1155 LYING FLAT, ROOM AIR W NO RESP DISTRESS. VITALS ALL WNL. L GROIN 6F EXOSEAL C/D/I WITH NO HEMATOMA OR BLEEDING. AT BEDSIDE.
--- NOTE | 2017-03-01 12:45 | NUR ---
1230 AWAKE, LYING FLAT, ROOM AIR, ALL VITALS WNL. L GROIN REMAINS C/D/I.
--- NOTE | 2017-03-01 13:18 | NUR ---
LEFT GROIN REMAINS C/D/I. EATING TURKEY SANDWICH WITH ASSIST FROM .
--- NOTE | 2017-03-01 14:03 | NUR ---
L GROIN REMAINS C/D/I W NO HEMATOMA. RESTING WITH EYES CLOSED. ROOM AIR, ALL VITALS WNL.
--- NOTE | 2017-03-01 14:28 | NUR ---
HOB ELEVATED, L GROIN REMAINS C/D/I WILL MONITOR FOR BLEEDING.
--- NOTE | 2017-03-01 15:13 | NUR ---
PIV REMOVED LEFT HAND WITH BANDAID APPLIED. UP TO BEDSIDE TO DRESS. PATIENT SYSTOLIC 155, L GROIN REMAINS C/D/I W NO HEMATOMA OR BLEEDING.
--- NOTE | 2017-03-01 15:33 | NUR ---
DISCUSSED D/C INSTRUCTIONS WITH AND PATIENT AT BEDSIDE. WHEELED OUT VIA WHEELCHAIR BY CATH TEAM.
--- NOTE | 2017-03-03 13:09 | HP ---
PATIENT: GAGAN SETHI MEDICAL RECORD: [id number] ACCOUNT: [id number] LOCATION:JUAN : 57 ADMISSION DATE: 03/01/17 HISTORY AND PHYSICAL EXAMINATION ADMITTING DIAGNOSES: 1. Angina. 2. Coronary artery disease. 3. Recent percutaneous transluminal coronary angioplasty stent of the right coronary artery with concomitant disease of the left anterior descending. 4. Chronic obstructive pulmonary disease. 5. Hypertension. HISTORY OF PRESENT ILLNESS: Mr. Sethi presents with increasing anginal symptomatology, found to have 2-vessel disease of the RCA and LAD, underwent successful PTCA stent of the RCA. He is now brought back for PTCA stent of the LAD. PHYSICAL EXAMINATION: GENERAL APPEARANCE: Well-nourished, well-developed, appears stated age. Level of distress, comfortable. PSYCHIATRIC: Mental status, alert, normal affect. Orientation, oriented to time, place and person. EYES: Lids and conjunctiva, noninjected. No discharge, no pallor. ENT: Lips, teeth, gums, normal dentition. Oropharynx, no cyanosis, no pallor. NECK: Carotid arteries, bilateral normal upstroke, no bruits, no thrills. JUGULAR VEINS: No jugular venous pressure or distention. CERVICAL LYMPH NODES: Nontender, nonenlarged. THYROID: Not enlarged. Nontender. No nodules. LUNGS: Respiratory effort, unlabored. CHEST: Normal curvature. No thoracic deformity. No chest wall tenderness. Percussion, resonant. Auscultation, clear. No wheezes, no rales, no rhonchi. CARDIOVASCULAR: Precordial exam, nondisplaced. No heaves or pericardial thrills. Rate and rhythm, regular. Heart sounds, normal S1, normal S2. No S3, no gallop, no rub. Systolic murmur, not heard. Diastolic murmur, not heard. EXTREMITIES: No cyanosis, no edema. Peripheral pulses, full and equal in all extremities, except as noted. No bruits appreciated. ABDOMEN: Soft, nondistended. Normal aorta. No bruit. Nontender. No masses. Liver, nontender, no hepatomegaly. Spleen, nontender, no splenomegaly. MUSCULOSKELETAL: No joint tenderness. No joint swelling. No erythema. NEUROLOGICAL: Normal gait, normal strength, normal tone. SKIN: Warm and dry. REVIEW OF SYSTEMS: The patient reports easy bruising but reports no swollen glands. The patient reports no fever, no night sweats, no significant weight gain, no significant weight loss. No significant exercise tolerance. The patient reports no dry eyes, no irritation, no vision change. Patient reports no difficulty hearing and no ear pain. Patient reports no frequent nose bleeds or nose and sinus problems. Patient reports on arm pain on exertion. No shortness of breath while lying down. No history of heart murmur. Patient reports no cough, no wheezing or coughing up blood. Patient reports no abdominal pain, no vomiting. Normal appetite. No diarrhea and not vomiting blood. No nausea and no constipation. Patient reports no incontinence. No difficulty urinating. No hematuria. No increased frequency. Patient reports no muscle aches. No weakness, no arthralgias, no back pain. No swelling of the HISTORY AND PHYSICAL [id number] GAGAN SETHI extremities. Patient reports no abnormal mole, no jaundice, no rashes. Reports no loss of consciousness. No weakness and no numbness. No seizures, dizziness, or headaches. The patient reports no depression, no sleep disturbance, feeling safe in a relationship and no alcohol abuse. Patient reports on fatigue. Reports no runny nose or sinus pressure. No itching, no hives, and no frequent sneezing. OVERALL IMPRESSSION: Anginal symptomatology with significant disease of the left anterior descending. We will proceed with percutaneous transluminal coronary angioplasty stent of the left anterior descending. TRANSINT:[id number] Voice Confirmation ID: [id number] DOCUMENT ID: [id number] ROXANNE MELCHOR MD at 1309 CC: [id number] DICTATION DATE: 03/01/17920 INSPECTOR FIREARMS: 03/01/1756 DEP CLI 03/01/17 [place] [id number]
--- NOTE | 2017-03-03 13:09 | OP ---
PATIENT NAME: GAGAN MIDDLETON MEDICAL RECORD: [id number] :57 LOCATION:D.CAT ADMISSION DATE: SURGEON: ROXANNE MELCHOR MD DATE OF OPERATION: 03/01/2017 PROCEDURES: 1. PTCA stent, LAD. 2. Selective coronary angiography. INDICATION: Continued angina after PTCA stent, RCA. PROCEDURE IN DETAIL: After informed consent was obtained and after detailed explanation of risks, benefits as well as alternative therapies, the patient elected to proceed with angiogram and angioplasty. The left femoral area is prepped and draped in normal sterile fashion. Left femoral artery was cannulated via modified Seldinger technique with placement of 6-Polish sheath. All catheters exchanged through this sheath. FINDINGS: The right coronary is widely patent from the previous intervention. Left circumflex is widely patent. The left anterior descending continues to have 70% stenosis in the proximal vessel. This was addressed with a 2.5 x 15 mm [place]. Result was 0% residual stenosis. OVERALL IMPRESSION: Successful percutaneous transluminal coronary angioplasty stent of the left anterior descending going from 70% initial stenosis to 0% residual stenosis. TRANSINT:[id number] Voice Confirmation ID: [id number] DOCUMENT ID: [id number] ROXANNE MELCHOR MD at 1309 CC: [id number] DICTATION DATE: 03/01/17 1123 MOTOR VEHICLE REPRESENTATIVE: 03/01/17 1226 DEP CLI 03/01/17 [place] [id number] [place] [id number]
== END 2017-03-01 15:34 | disposition home or self-care (01) ==
LOC: D.CATH 08:57
PROVIDERS: Internal Medicine Interventional Cardiology
DX: I25.119 Atherosclerotic heart disease of native coronary artery with unspecified angina pectoris (principal); Z95.5 Presence of coronary angioplasty implant and graft; J44.9 Chronic obstructive pulmonary disease, unspecified; I10 Essential (primary) hypertension; Z01.812 Encounter for preprocedural laboratory examination

== ENCOUNTER 2017-06-23 17:59 | Inpatient (IN) | payer OTHER ==
[~2017-06-23] VITALS: Ht 177.8 cm; Wt 81.6 kg
[~2017-06-23 17:59] MED LIST changes: +FLORINEF 0.1 M0.1 MG PO; +IPRAT-ALBUT 0.5-3 ML UPD; +PROAIR HFA8.5 GM INH
[2017-06-23 20:41] VITALS: BP 119/68; BMI 25.8
[2017-06-23 20:44] LABS: BASOPHILS 0.1 % (0-2); EOSINOPHILS 0.2 % (0-7); HEMATOCRIT 39.1 % (42.0-54.0); HEMOGLOBIN 13.3 g/dL (13.5-17.5); IMMATURE GRANULOCYTES 0.6 % (0-5); LYMPHOCYTES 13.3 % (15-50); MCH 33.4 pg (26.0-34.0); MCV 98.2 fL (80.0-100.0); MEAN PLATELET VOLUME 10.2 fL (7.4-10.4); MONOCYTES 5.5 % (2-11); NEUTROPHILS 80.3 % (40-80); PLATELET COUNT 197 10x3/uL (130-400); RBC 3.98 10x6/uL (4.20-6.10); WBC 9.9 10x3/uL (4.8-10.8)
[2017-06-23 20:59] LABS: ALBUMIN 2.7 g/dL (3.4-5.0); ALKALINE PHOSPHATASE 262 U/L (46-116); ALT (SGPT) 19 U/L (10-68); BILIRUBIN - TOTAL 0.38 mg/dL (0.2-1.3); CALC OSMOLALITY 285 mosm/kg (275-300); CALCIUM 8.4 mg/dL (8.5-10.1); CARBON DIOXIDE 33.1 mmol/L (21.0-32.0); CHLORIDE - SERUM 99 mmol/L (98-107); GLUCOSE 228 mg/dL (74-106); POTASSIUM - SERUM 3.4 mmol/L (3.5-5.1); PROTEIN - SERUM 6.7 g/dL (6.4-8.2); SODIUM 141 mmol/L (136-145); UREA NITROGEN 8 mg/dL (7-18); eGFR NON AFRICAN AMERICAN 81 mL/min (90-120)
[2017-06-23] MEDS ORDERED: LASIX40 MG PO (21:02)
[2017-06-23] MEDS ORDERED: FLUDROCORTISON0.1 MG PO (21:03)
[2017-06-23 21:41] VITALS: BP 119/68
[2017-06-24 00:40] VITALS: BP 112/57
[2017-06-24 04:05] VITALS: BP 96/49
[2017-06-24 09:46] VITALS: BP 123/69
[2017-06-24 12:34] VITALS: BP 105/63
[2017-06-24 13:24] VITALS: Ht 177.8 cm; Wt 81.6 kg
[2017-06-24 17:05] VITALS: BP 104/60
[2017-06-24 22:02] VITALS: BP 137/76
[2017-06-25 01:28] VITALS: BP 121/70
[2017-06-25 05:06] VITALS: BP 127/61
[2017-06-25 09:07] VITALS: BP 126/69
[2017-06-25 12:40] VITALS: BP 129/66
[2017-06-25] MEDS ORDERED: TAMIFLU75 MG PO (16:33)
[2017-06-25 17:09] VITALS: BP 112/56
== END 2017-06-25 18:20 | disposition home or self-care (01) | DRG 202 ==
LOC: D.MS
PROVIDERS: Family Medicine
DX: J20.9 Acute bronchitis, unspecified (principal); J44.0 Chronic obstructive pulmonary disease with (acute) lower respiratory infection; R09.02 Hypoxemia; R91.1 Solitary pulmonary nodule; I10 Essential (primary) hypertension; Z20.828 Contact with and (suspected) exposure to other viral communicable diseases

== ENCOUNTER 2017-09-08 11:21 | Emergency (ER) | payer MEDICAID ==
[2017-06-24 13:24] VITALS: BMI 25.8
[~2017-09-08 11:21] MED LIST changes: +FLUDROCORTISON0.1 MG PO; +LASIX40 MG PO; +TAMIFLU75 MG PO
[2017-09-08 13:20] LABS: APPEARANCE CLEAR (CLEAR); BILIRUBIN NEGATIVE (NEGATIVE); COLOR YELLOW (YELLOW); GLUCOSE NEGATIVE (NEGATIVE); KETONE NEGATIVE (NEGATIVE); NITRITE NEGATIVE (NEGATIVE); PROTEIN NEGATIVE (NEGATIVE); UROBILINOGEN NORMAL (NORMAL)
== END 2017-09-08 15:55 | disposition home or self-care (01) ==
LOC: D.ER 11:21
PROVIDERS: Physician Assistant
DX: M25.512 Pain in left shoulder (principal); S20.212A Contusion of left front wall of thorax, initial encounter; W01.0XXA Fall on same level from slipping, tripping and stumbling without subsequent striking against object, initial encounter; Y93.89 Activity, other specified; Y92.019 Unspecified place in single-family (private) house as the place of occurrence of the external cause; R51 Headache; S00.83XA Contusion of other part of head, initial encounter; J44.9 Chronic obstructive pulmonary disease, unspecified; I25.10 Atherosclerotic heart disease of native coronary artery without angina pectoris

== ENCOUNTER 2017-09-09 20:43 | Emergency (ER) | payer MEDICAID ==
[2017-06-24 13:24] VITALS: BMI 25.8
[2017-09-09 21:03] LABS: APPEARANCE CLEAR (CLEAR); BILIRUBIN NEGATIVE (NEGATIVE); COLOR STRAW (YELLOW); GLUCOSE NEGATIVE (NEGATIVE); KETONE NEGATIVE (NEGATIVE); NITRITE NEGATIVE (NEGATIVE); PROTEIN NEGATIVE (NEGATIVE); SPECIFIC GRAVITY 1.005 (1.005-1.020); UROBILINOGEN NORMAL (NORMAL)
[2017-09-09 21:07] LABS: UDS - AMPHET NEGATIVE QUAL (NEGATIVE); UDS - BARB NEGATIVE QUAL (NEGATIVE); UDS - BENZO NEGATIVE QUAL (NEGATIVE); UDS - COCAINE NEGATIVE QUAL (NEGATIVE); UDS - OPIATE NEGATIVE QUAL (NEGATIVE); UDS - PCP NEGATIVE QUAL (NEGATIVE); UDS - THC NEGATIVE QUAL (NEGATIVE)
[2017-09-09 21:12] LABS: BASOPHILS 0.1 % (0-2); EOSINOPHILS 0.1 % (0-7); HEMOGLOBIN 14.8 g/dL (13.5-17.5); IMMATURE GRANULOCYTES 0.5 % (0-5); LYMPHOCYTES 12.8 % (15-50); MCH 31.2 pg (26.0-34.0); MCHC 35.2 g/dL (31.0-37.0); MCV 88.4 fL (80.0-100.0); MEAN PLATELET VOLUME 9.7 fL (7.4-10.4); MONOCYTES 6.8 % (2-11); NEUTROPHILS 79.7 % (40-80); PLATELET COUNT 195 10x3/uL (130-400); RBC 4.75 10x6/uL (4.20-6.10); RDW 15.7 % (11.5-14.5); WBC 10.2 10x3/uL (4.8-10.8)
[2017-09-09 21:20] LABS: ACETAMINOPHEN 0.6 ug/mL (10.0-30.0); ALBUMIN 3.1 g/dL (3.4-5.0); ALKALINE PHOSPHATASE 176 U/L (46-116); ALT (SGPT) 14 U/L (10-68); BILIRUBIN - TOTAL 0.32 mg/dL (0.2-1.3); CALCIUM 8.2 mg/dL (8.5-10.1); CHLORIDE - SERUM 96 mmol/L (98-107); CREATININE - SERUM 0.8 mg/dL (0.6-1.3); PROTEIN - SERUM 7.4 g/dL (6.4-8.2); SODIUM 138 mmol/L (136-145); UREA NITROGEN 6 mg/dL (7-18); eGFR NON AFRICAN AMERICAN > 90 mL/min (90-120)
[2017-09-09 21:24] LABS: CALC OSMOLALITY 273 mosm/kg (275-300); GLUCOSE 105 mg/dL (74-106)
[2017-09-09 21:25] LABS: POTASSIUM - SERUM 2.6 mmol/L (3.5-5.1)
[2017-09-10 01:29] LABS: POTASSIUM - SERUM 2.9 mmol/L (3.5-5.1)
== END 2017-09-10 08:16 | disposition home or self-care (01) ==
LOC: D.ER 20:43
PROVIDERS: Family Medicine; Physician Assistant
DX: E87.6 Hypokalemia (principal); R45.851 Suicidal ideations; J44.9 Chronic obstructive pulmonary disease, unspecified; I25.10 Atherosclerotic heart disease of native coronary artery without angina pectoris; F17.200 Nicotine dependence, unspecified, uncomplicated

== ENCOUNTER 2017-12-19 08:55 | Outpatient (CLI) | payer MEDICAID ==
[~2017-12-19] VITALS: Ht 177.8 cm; Wt 86.4 kg
--- NOTE | ~2017-12-19 | HEMODYNAMI ---
PATIENT:GAGAN MIDDLETON MEDICAL RECORD: [id number] : 57 LOCATION:DH[facility]idaCAT ADMISSION DATE: 12/19/17 Generatedon:12/19/201712:11 Patient name: GAGAN MIDDLETON Patient #: [id number] S SN: [id number] : 1955 Date of study: 12/19/2017 Page: Of Hemodynamic Procedure Report Patient Data Patient Demographics Procedure consent was obtained First Name: GAGAN Gender: Male Last Name: EMI : 1955 Middle Initial: R Age: 62 year(s) Patient #: [id number] Race: SSN: [id number] Additional ID: [id number] Contact details Address: [address] [place] [address] State: [place] City: [place] Zip code: [address] Past Medical History Allergies: No known allergies Admission Admission Data Admission Date: 12/19/2017 Admission Time: 8:55 Procedure Procedure Types Cath Procedure Diagnostic Procedure [facility] w/Coronaries PCI Procedure Coronary Stent Coronary Stent Initial Procedure Description Procedure Date Procedure Date: 12/19/2017 Procedure Start Time: 11:56 Procedure End Time: 12:11 Procedure Staff Name Function Alex Metzger MD Performing Physician Aranza Anglin RT Monitor Timur Ross RN Nurse Warner Hermosillo RT Scrub Procedure Data Cath Procedure Fluoroscopy Diagnostic fluoroscopy Total fluoroscopy Time: 3.2 time: 3.2 min min Diagnostic fluoroscopy Total fluoroscopy dose: 569 dose: 569 mGy mGy Contrast Material Contrast Material Type Amount (ml) Isovue 300 72 Entry Location Entry Primary Successful Side Size Upsize Upsize Entry Closure Succes sful Closure Location (Fr) 1 (Fr) 2 (Fr) Remarks Device Remarks Femoral Right 5 Fr 6 Fr Exoseal artery Short Estimated blood loss: 10 ml Diagnostic catheters Device Type Used For End Catheter Placement MULTIPACK Pigtail 5 Fr LV Angiography catheter MULTIPACK JL 4.0 5Fr Left Coronary catheter Angiography MULTIPACK 3DRC 5Fr Right Coronary catheter Angiography Procedure Complications No complications Procedure Medications Medication Administration Route Dosage 0.9% NaCl I.V. 100 ml/hr Oxygen NC 2 l/min Heparin Flush Bag added to field 2 bags (1000units/500ml NS) Lidocaine 2% added to field 20 Versed I.V. 2 mg Fentanyl I.V. 100 mcg Heparin Bolus I.V. 4000 units Hemodynamics Rest Heart Rate: 75 (bpm) Snapshots Pre Cath Intra NCS Post Cath Vital Signs Time Heart Resp SPO2 etCO2 NIBP (mmHg) Rhythm Pain Sedation Rate (ipm) (%) (mmHg) Status Level (bpm) 11:50:04 67 16 95 0 135/80(103) NSR 0 (11) 10(A) , No pain 11:54:49 66 17 94 0 133/74(94) NSR 0 (11) 10(A) , No pain 11:59:29 65 18 93 0 113/75(92) NSR 0 (11) 10(A) , No pain 12:04:08 66 14 94 0 114/84(102) NSR 0 (11) 10(A) , No pain 12:08:46 73 19 94 0 112/77(103) NSR 0 (11) 10(A) , No pain Medications Time Medication Route Dose Verified Delivered Reason Notes Effectiveness by by 11:48:30 0.9% NaCl I.V. 100 Timur Timur Per physician ml/hr Vandana Ross RN RN 11:48:39 Oxygen NC 2 Timur Timru Per physician l/min Vandana Ross RN RN 11:48:50 Heparin Flush added 2 Timur Timur used for Bag to bags Vandana Ross procedure (1000units/500ml field SCHULTZ RN NS) 11:49:00 Lidocaine 2% added 20ml Timur Timur for local to vial Vandana Ross anesthetic field SCHULTZ RN 11:53:31 Versed I.V. 2 mg Timur Timur for sedation Vandana Ross RN RN 11:53:38 Fentanyl I.V. 100 Timur Timur for sedation mcg Vandana Ross RN RN 12:02:48 Heparin Bolus I.V. 4000 Timur Timur for units Vandana Ross anticoagulation RN fisher Log Time Note 11:29:44 Time tracking: Regular hours (M-F 7:00 - 5:00) 11:29:48 Plan of Care:Hemodynamics will remain stable., Cardiac rhythm will remain stable., Comfort level will be maintained., Respiratory function will remain adequate., Patient/ family verbilizes understanding of procedure., Procedure tolerated without complication., Recovers from procedure without complications.. 11:34:39 Aranza Anglin RT(R) sent for patient. Start room use. 11:40:13 Patient received from Pre/Post Procedure Room to CCL 1 Alert and oriented. Tansferred to table in Supine position. 11:40:14 Warm blankets applied, and eric hugger turned on for patient comfort. 11:40:14 Correct patient and procedure confirmed by team. 11:40:16 Signed procedure consent form obtained from patient. 11:40:17 ECG and BP/O2 sat monitors applied to patient. 11:40:18 Pre-procedure instructions explained to patient. 11:40:18 Pre-op teaching completed and patient verbalized understanding. 11:40:30 H&P Date Dictated: 12/18/2017 Within 30 days and on chart., H&P Addendum completed by physician on day of procedure. (MUST COMPLETE FOR ALL OUTPATIENTS). 11:48:30 0.9% NaCl 100 ml/hr I.V. was administered by Timur Ross RN; Per physician; 11:48:39 Oxygen 2 l/min NC was administered by Timur Ross RN; Per physician; 11:48:50 Heparin Flush Bag (1000units/500ml NS) 2 bags added to field was administered by Timur Ross RN; used for procedure; 11:49:00 Lidocaine 2% 20ml vial added to field was administered by Timur Ross RN; for local anesthetic; 11:49:08 Vital chart was started 11:50:25 Full Disclosure recording started 11:50:28 Rhythm: sinus rhythm 11:50:29 Baseline sample Acquired. 11:50:32 Family in patients room. 11:50:35 Patient NPO since Midnight. 11:50:44 Is the patient allergic to Iodine/contrast media? No. 11:50:46 Is patient on blood thinner?Yes 11:50:48 ACC The patient was administered the following blood thiners within the last 24 hours: ACCAspirin, ACCPlavix 11:50:51 Patient diabetic? No. 11:51:01 Previous problem with sedation/anesthesia? Yes TROUBLE WAKING 11:51:03 Snore? Yes 11:51:04 Sleep apnea? Yes 11:51:05 Deviated septum? No 11:51:06 Opens mouth fully? Yes 11:51:07 Sticks out tongue? Yes 11:51:11 Airway obstruction? Yes COPD 11:51:18 Dentures? Yes IN TIGHT 11:52:13 Pre procedure: right dorsailis pedis pulse 1+ Palpable, but thready & weak; easily obliterated 11:52:15 Patient pain scale 0/10 ?. 11:52:23 IV patent on arrival in left forearm with 0.9% NaCl at [facility]. 11:52:26 Lab results completed and on chart. 11:52:35 Bilateral groins area was prepped with chlora-prep and draped in sterile fashion 11:52:36 Alarms reviewed by R. N. 11:52:36 Sharps counted by scrub and verified by R.N. 11:52:38 Final Timeout: patient, procedure, and site verified with staff and physician. All members of the team are in agreement. 11:52:41 Right groin site verified by team. 11:52:44 Physical assessment completed. ASA score P 2 - A patient with mild systemic disease as per Alex Metzger MD. 11:52:48 Sedation plan: IV Moderate Sedation Medication:Versed, Fentanyl 11:53:01 Use device set Femoral Dx 11:53:02 ACIST Syringe (29008) opened to sterile field. 11:53:03 Bag Decanter () opened to sterile field. 11:53:03 Medline Cath Pack ([id number]) opened to sterile field. 11:53:04 DIAGNOSTIC WIRE .035 260cm J wire (277958) opened to sterile field. 11:53:05 ACIST Hand Control (88889) opened to sterile field. 11:53:05 ACIST Manifold (87654) opened to sterile field. 11:53:06 DIAGNOSTIC Multipack 5Fr catheter set (US3909) opened to sterile field. 11:53:06 Tegaderm 4 x 4 (1626W) opened to sterile field. 11:53:08 SHEATH Prelude 5Fr 0.035 (BAI-6Q-95-035) opened to sterile field. 11:53:31 Versed 2 mg I.V. was administered by Timur Ross RN; for sedation; 11:53:38 Fentanyl 100 mcg I.V. was administered by Timur Ross RN; for sedation; 11:56:14 Procedure started. 11:56:17 Local anesthetic to right femoral artery with Lidocaine 2% by Alex Metzger MD.INITIAL ACCESS ONLY 11:56:25 Zero performed for pressure channel P1 11:56:50 A 5 Fr sheath was inserted into the Right Femoral artery 11:57:49 A MULTIPACK Pigtail 5 Fr catheter was advanced over the wire and used for LV Angiography. 11:58:38 LV gram done using WOODS 11:58:45 Injector settings: Ml/sec: 10, Volume: 20, 11:58:51 EF : 60 % 11:58:58 Catheter removed. 11:59:03 A MULTIPACK JL 4.0 5Fr catheter was advanced over the wire and used for Left Coronary Angiography. 12:00:02 Catheter removed. 12:00:08 A MULTIPACK 3DRC 5Fr catheter was advanced over the wire and used for Right Coronary Angiography. 12:00:39 Catheter removed. 12:00:46 Use device set [facility] PCI 12:00:47 SHEATH Prelude 6Fr 0.035 (JET-8M-56-035) opened to sterile field. 12:00:50 INFLATOR Merit BasixCompak (CN4309) opened to sterile field. 12:01:55 GUIDE 6FR AR 1.0 SH catheter ([id number]) opened to sterile field. 12:02:02 Sheath upsized to a 6 Fr Short. 12:02:43 6 Fr AR 1.0 SH guide catheter was inserted over the wire 12:02:48 Heparin Bolus 4000 units I.V. was administered by Timur Ross RN; for anticoagulation; 12:02:50 GRAPHIX wire advanced. 12:02:59 GRAPHIX 182cm guide wire ([id number]) opened to sterile field. 12:04:29 Place stent Inflation Number: 1 A DONTE RX 3.0 x 15 stent ([id number]) was prepped and advanced across the Dist RCA. The stent was deployed at 17 PATY for 0:08 (min:sec). 12:04:39 Inflation number: 2 The stent balloon was then re-inflated across the Dist RCA to 17 PATY for 0:07 (min:sec). 12:04:51 Inflation number: 1 The stent balloon was then re-inflated across the Mid RCA to 17 PATY for 0:07 (min:sec). 12:05:02 Inflation number: 1 The stent balloon was then re-inflated across the Prox RCA to 17 PATY for 0:00 (min:sec). 12:06:04 Inflation number: 2 The stent balloon was then re-inflated across the Mid RCA to 23 PATY for 0:08 (min:sec). 12:07:10 Stent catheter was removed intact over wire. 12:07:11 Wire removed. 12:07:13 Guide catheter removed. 12:07:22 Sheath removed intact; hemostasis achieved with Exoseal to the Right Femoral artery. 12:07:23 Procedure ended.(Physican Out) 12:07:44 Fluoroscopy time 03.20 minutes. 12:07:48 Fluoroscopy dose: 569 mGy 12:07:48 Flurop Dose total: 569 12:07:55 Contrast amount:Isovue 300 72ml. 12:07:56 Sharps counted by scrub and verified by R.N. 12:07:57 Insertion/operative site no bleeding no hematoma. 12:08:00 Post-op/insertion site Right Femoral artery dressed using a 4 x 4 and Tegaderm. 12:08:03 Post right femoral artery:stable, clean and dry 12:08:04 Post Procedure Pulses reassessed and unchanged 12:08:14 Post-procedure physical assessment completed. ASA score P 2 - A patient with mild systemic disease as per Alex Metzger MD. 12:08:47 Post procedure rhythm: unchanged. 12:08:50 Estimated blood loss: 10 ml 12:08:52 Post procedure instruction explained to patient.Patient verbalizes understanding. 12:08:52 Patient needs reinforcement of post procedure teaching. 12:08:58 Procedure type changed to Cath procedure, Diagnostic procedure, LHC, LHC w/Coronaries, PCI procedure, Coronary Stent, Coronary Stent Initial 12:09:28 EXOSEAL 6Fr (EX600) opened to sterile field. 12:11:15 Procedure and supply charges have been captured, reviewed, submitted and are correct. 12:11:16 See physician's report for complete and final results. 12:11:21 Procedure Complication : No complications 12:11:30 Vital chart was stopped 12:11:31 Report given to Pre/Post Procedure Room. 12:11:34 Patient transfered to Pre/Post Procedure Room with Stretcher. 12:11:40 Procedure ended. 12:11:40 Full Disclosure recording stopped 12:11:43 End room use (Document Last) Intervention Summary Intervention Notes Time ActionType Lesion and Equipment Used Action# Pressure Duration Attributes 12:04:29 Place stent Dist RCA DONTE RX 3.0 x 1 17 00:08 15 stent ([id number]) 12:04:39 Reinflate Dist RCA DONTE RX 3.0 x 2 17 00:07 stent 15 stent balloon ([id number]) 12:04:51 Reinflate Mid RCA DONTE RX 3.0 x 1 17 00:07 stent 15 stent balloon ([id number]) 12:05:02 Reinflate Prox RCA DONTE RX 3.0 x 1 17 00:00 stent 15 stent balloon ([id number]) 12:06:04 Reinflate Mid RCA DONTE RX 3.0 x 2 23 00:08 stent 15 stent balloon ([id number]) Device Usage Item Name Manufacture Quantity Catalog Number Hospital Part Current Minimal Lot# / Charge Number Stock Stock Serial# Code ACIST Syringe Acist 1 05080 882645 486556 738069 20 (17561) Medical Systems Inc Bag Decanter Microtek 1 860286 85852 318598 5 (2001S) Medical Inc. Medline Cath Cardinal 1 [id number] 036819 90597 534139 5 Pack Health ([id number]) DIAGNOSTIC WIRE [facility] [place] 1 435126 329108 007990 670741 30 .035 260cm J wire (452877) ACIST Hand Acist 1 39869 565685 798852 619902 5 Control (49038) Medical Systems Inc ACIST Manifold Acist 1 61427 693173 425757 398792 5 (55296) Medical Systems Inc DIAGNOSTIC Cardinal 1 ZC4536 893347 25427 706088 30 Multipack 5Fr Health catheter set (AQ8927) Tegaderm 4 x 4 3M 1 1626W 203754 349786 296424 5 (1626W) SHEATH Prelude Merit 1 LZU-4G-11-035 336324 843685 305034 5 5Fr 0.035 Medical (MQS-0O-80-035) MULTIPACK Cardinal 1 948552 5 Pigtail 5 Fr Health catheter MULTIPACK JL Cardinal 1 129642 5 4.0 5Fr Health catheter MULTIPACK 3DRC Cardinal 1 518993 5 5Fr catheter Health SHEATH Prelude Merit 1 CND-2L-93-35 074921 1820023 655960 5 6Fr 0.035 Medical (TWU-3K-26-035) INFLATOR Merit Merit 1 FG7062 764389 799400 119323 15 BasixCompak Medical (IS9659) GUIDE 6FR AR Medtronic 1 [id number] 678971 64396 748444 1 1.0 SH catheter ([id number]) GRAPHIX 182cm [address] 1 [id number] 972290 071674 820554 5 guide wire Scientific ([id number]) DONTE RX 3.0 x Medtronic 1 [id number] 322762 1417620 190263 5 [id number] 15 stent ([id number]) EXOSEAL 6Fr Cardinal 1 EX600 386518 707296 534190 10 (EX600) Health Signature Audit [place] Stage Time Signature Unsigned Intra-Procedure 12/19/2017 Aranza 12:11:54 PM Counts RT(R) Signatures Monitor : Aranza Signature : Counts RT Date : Time : [id number] [place] [address]
--- NOTE | ~2017-12-19 | OP ---
PATIENT NAME: GAGAN MIDDLETON MEDICAL RECORD: [id number] :57 LOCATION:D.CAT ADMISSION DATE: SURGEON: ROXANNE MELCHOR MD DATE OF OPERATION: 12/19/2017 PROCEDURES: 1. PTCA stent RCA. 2. Left heart catheterization. 3. Selective coronary angiography. 4. Left ventriculogram. INDICATION: Angina and coronary artery disease. PROCEDURE IN DETAIL: After informed consent was obtained and after detailed description of the risks, benefits as well as alternative therapies, the patient elected to proceed with angiogram and angioplasty. The right femoral area was prepped and draped in normal sterile fashion. Right femoral artery was cannulated via modified Seldinger technique with placement of 6-Telugu sheath. All catheters exchanged through this sheath. FINDINGS: The left ventriculogram was performed in standard 30-degree WOODS view, reveals good cardiac wall motion throughout all segments. Overall ejection fraction estimated at 60%. SELECTIVE CORONARY ANGIOGRAPHY: 1. Left main showed no significant angiographic disease. 2. Left anterior descending has previously placed stents with 90% in-stent restenosis in the mid vessel. 3. Left circumflex has mild irregularities, but no flow-limiting stenosis. 4. The right coronary has previously placed stents with 95% in-stent restenosis in the mid vessel. WASTE/MATERIALS EXCHANGE SPECIALIST STENT OF THE RIGHT CORONARY: The stent used was a 3.0 x 15 mm Mars. Result was 0% residual stenosis. OVERALL IMPRESSION: Successful percutaneous transluminal angioplasty stent of the right coronary artery going from 95% initial stenosis to 0% residual. PLAN: PTCA stent of the LAD in the near future. TRANSINT:[id number] Voice Confirmation ID: [id number] DOCUMENT ID: [id number] ROXANNE MELCHOR MD at 1325 CC: [id number] DICTATION DATE: 12/19/17 1213 ELECTRIC INSTALLER: 12/19/17 1242 DEP CLI 12/19/[address] [address]
[2017-12-19] MEDS ORDERED: SYMBICORT 16010.2 GM INH (09:41)
[2017-12-19] MEDS ORDERED: VOLTAREN100 GM TOPICAL (09:43)
[2017-12-19] MEDS ORDERED: NEURONTIN 400400 MG PO (09:44)
[2017-12-19] MEDS ORDERED: MAG-OX 400 MG400 MG PO (09:45)
[2017-12-19] MEDS ORDERED: KEPPRA750 MG PO (09:45)
[2017-12-19] MEDS ORDERED: PROCARDIA10 MG PO (09:46)
[2017-12-19] MEDS ORDERED: CYCLOBENZAPRINE10 MG PO (09:46)
[2017-12-19] MEDS ORDERED: KLOR-CON20 MEQ/PKT PO (09:47)
[2017-12-19] MEDS ORDERED: IMITREX50 MG PO (09:49)
[2017-12-19] MEDS ORDERED: ZANAFLEX2 M1 PO (09:50)
[2017-12-19] MEDS ORDERED: VENTOLIN HFA18 GM INH (09:51)
[2017-12-19 10:03] VITALS: BP 121/64; Ht 177.8 cm; Wt 86.4 kg
[2017-12-19 10:07] LABS: BASOPHILS 0.2 % (0-2); EOSINOPHILS 0.7 % (0-7); HEMATOCRIT 39.6 % (42.0-54.0); HEMOGLOBIN 13.4 g/dL (13.5-17.5); IMMATURE GRANULOCYTES 0.9 % (0-5); LYMPHOCYTES 14.3 % (15-50); MCH 31.8 pg (26.0-34.0); MCHC 33.8 g/dL (31.0-37.0); MCV 94.1 fL (80.0-100.0); MEAN PLATELET VOLUME 9.4 fL (7.4-10.4); MONOCYTES 8.2 % (2-11); NEUTROPHILS 75.7 % (40-80); PLATELET COUNT 197 10x3/uL (130-400); RBC 4.21 10x6/uL (4.20-6.10)
[2017-12-19 10:29] LABS: CALC OSMOLALITY 277 mosm/kg (275-300); CALCIUM 8.7 mg/dL (8.5-10.1); CARBON DIOXIDE 31.2 mmol/L (21.0-32.0); CHLORIDE - SERUM 102 mmol/L (98-107); CREATININE - SERUM 0.8 mg/dL (0.6-1.3); GLUCOSE 124 mg/dL (74-106); SODIUM 140 mmol/L (136-145); UREA NITROGEN 7 mg/dL (7-18); eGFR NON AFRICAN AMERICAN > 90 mL/min (90-120)
== END 2017-12-19 15:53 ==
LOC: D.CATH 08:55
PROVIDERS: Internal Medicine Interventional Cardiology
DX: I25.119 Atherosclerotic heart disease of native coronary artery with unspecified angina pectoris (principal); T82.855A Stenosis of coronary artery stent, initial encounter; Z01.812 Encounter for preprocedural laboratory examination

== ENCOUNTER → 2017-12-22 07:34 | Outpatient (CLI) | payer MEDICAID ==
[~2017-12-22] VITALS: Ht 177.8 cm; Wt 86.4 kg
--- NOTE | ~2017-12-22 | OP ---
PATIENT NAME: GAGAN MIDDLETON MEDICAL RECORD: [id number] :57 LOCATION:D.CAT ADMISSION DATE: SURGEON: ROXANNE MELCHOR MD DATE OF OPERATION: 12/22/2017 PROCEDURES: 1. PTCA stent LAD. 2. PTCA LAD diagonal. 3. Selective coronary angiography. INDICATION: Angina and coronary artery disease. PROCEDURE IN DETAIL: After informed consent was obtained and after a detailed description of risks, benefits as well as alternative therapies, the patient elected to proceed with angiogram and angioplasty. The left femoral area was prepped and draped in normal sterile fashion. Left femoral artery was cannulated via modified Seldinger technique with placement of 6-Indian sheath. All catheters exchanged through this sheath. FINDINGS: The left anterior descending has 90% stenosis in the proximal vessel. This was addressed with a 3.0 x 15 mm Marlon stent. This caused plaque shift into the diagonal. The diagonal was ballooned with a 2.0 balloon. Result was 0% residual throughout. OVERALL IMPRESSION: Successful PTCA stent of the LAD and PTCA of the LAD diagonal going from 90% initial stenosis to 0% residual. TRANSINT:[id number] Voice Confirmation ID: [id number] DOCUMENT ID: [id number] ROXANNE MELCHOR MD at 1816 CC: [id number] DICTATION DATE: 12/22/17 1136 CLAIM APPROVER: 12/22/[address] [facility] [address] [place] [address]
--- NOTE | ~2017-12-22 | OP ---
PATIENT NAME: GAGAN MIDDLETON MEDICAL RECORD: [id number] :57 LOCATION:D.CAT ADMISSION DATE: SURGEON: ROXANNE MELCHOR MD DATE OF OPERATION: 12/22/2017 PROCEDURES: 2. Stent placement SFA, right. 3. CHEMICALS FERMENTATION OPERATOR SFA, right. 4. Aortofemoral runoff. 5. Abdominal aortography. PROCEDURE IN DETAIL: After informed consent was obtained and after a detailed description of the risks, benefits as well as alternative therapies, the patient elected to proceed with angiogram and angioplasty. The left femoral area had a preexisting sheath. All catheters exchanged through this sheath. FINDINGS: The abdominal aortography was performed. The catheter was pulled down for aortofemoral runoff. Abdominal aortography reveals no significant abdominal aortic disease, no dissection or aneurysm formation. RIGHT LEG: A. Iliac: The common internal and external iliacs have moderate irregularities, but no flow-limiting stenosis. Previously placed stents are widely patent. B. Femoral system: The common and deep femoral are widely patent. Superficial femoral has 80+ percent stenosis in the mid vessel. C. Popliteal and infrapopliteal vessels are patent giving good 3-vessel runoff to the foot. LEFT LEG: A. Iliac: The common internal and external iliacs have moderate irregularities, but no flow-limiting stenosis. B. Femoral system: The common superficial and deep femoral have moderate irregularities, but no flow-limiting stenosis. C. Popliteal and infrapopliteal vessels are widely patent with good thrill and runoff to the foot. CHEMICALS FERMENTATION OPERATOR STENT OF THE RIGHT SFA: The balloon used was a 5 x 40 balloon. This yielded suboptimal result with severe intimal dissection. Stenting was undertaken with a 6 x 60 Cordis SMART stent. Result was 0% residual stenosis. OVERALL IMPRESSION: Successful CHEMICALS FERMENTATION OPERATOR stent of the right SFA going from 80% initial stenosis to 0% residual. TRANSINT:[id number] Voice Confirmation ID: [id number] DOCUMENT ID: [id number] ROXANNE MELCHOR MD at 1816 CC: [id number] DICTATION DATE: 12/22/17 1136 LINE CONSTRUCTION SUPERVISOR: 12/22/17 1148 [address] [facility] [address] [place] [address]
--- NOTE | ~2017-12-22 | HP ---
PATIENT: GAGAN SETHI MEDICAL RECORD: [id number] ACCOUNT: [id number] LOCATION:JUAN : 57 ADMISSION DATE: 12/22/17 HISTORY AND PHYSICAL EXAMINATION ADMITTING DIAGNOSES: 1. Angina. 2. Coronary artery disease. 3. Recent PTCA stent of the RCA with concomitant disease to LAD. 4. Claudication. 5. Peripheral vascular disease. 6. Hypertension. 7. Hyperlipidemia. HISTORY OF PRESENT ILLNESS: Mr. Sethi presents with anginal symptomatology, found to have 2-vessel disease, underwent successful PTCA stent of the RCA. He is now brought back for PTCA stent of the LAD. PHYSICAL EXAMINATION: GENERAL APPEARANCE: Well-nourished, well-developed, appears stated age. Level of distress, comfortable. PSYCHIATRIC: Mental status, alert, normal affect. Orientation, oriented to time, place and person. EYES: Lids and conjunctiva, noninjected. No discharge, no pallor. ENT: Lips, teeth, gums, normal dentition. Oropharynx, no cyanosis, no pallor. NECK: Carotid arteries, bilateral normal upstroke, no bruits, no thrills. JUGULAR VEINS: No jugular venous pressure or distention. CERVICAL LYMPH NODES: Nontender, nonenlarged. THYROID: Not enlarged. Nontender. No nodules. LUNGS: Respiratory effort, unlabored. CHEST: Normal curvature. No thoracic deformity. No chest wall tenderness. Percussion, resonant. Auscultation, clear. No wheezes, no rales, no rhonchi. CARDIOVASCULAR: Precordial exam, nondisplaced. No heaves or pericardial thrills. Rate and rhythm, regular. Heart sounds, normal S1, normal S2. No S3, no gallop, no rub. Systolic murmur, not heard. Diastolic murmur, not heard. EXTREMITIES: No cyanosis, no edema. Peripheral pulses, full and equal in all extremities, except as noted. No bruits appreciated. ABDOMEN: Soft, nondistended. Normal aorta. No bruit. Nontender. No masses. Liver, nontender, no hepatomegaly. Spleen, nontender, no splenomegaly. MUSCULOSKELETAL: No joint tenderness. No joint swelling. No erythema. NEUROLOGICAL: Normal gait, normal strength, normal tone. SKIN: Warm and dry. REVIEW OF SYSTEMS: The patient reports easy bruising but reports no swollen glands. The patient reports no fever, no night sweats, no significant weight gain, no significant weight loss. No significant exercise tolerance. The patient reports no dry eyes, no irritation, no vision change. Patient reports no difficulty hearing and no ear pain. Patient reports no frequent nose bleeds or nose and sinus problems. Patient reports on arm pain on exertion. No shortness of breath while lying down. No history of heart murmur. Patient reports no cough, no wheezing or coughing up blood. Patient reports no abdominal pain, no vomiting. Normal appetite. No diarrhea and not vomiting blood. No nausea and no constipation. Patient reports no incontinence. No difficulty urinating. No hematuria. No increased frequency. Patient reports no muscle aches. No weakness, no arthralgias, no back pain. No swelling of the HISTORY AND PHYSICAL [id number] GAGAN SETHI extremities. Patient reports no abnormal mole, no jaundice, no rashes. Reports no loss of consciousness. No weakness and no numbness. No seizures, dizziness, or headaches. The patient reports no depression, no sleep disturbance, feeling safe in a relationship and no alcohol abuse. Patient reports on fatigue. Reports no runny nose or sinus pressure. No itching, no hives, and no frequent sneezing. OVERALL IMPRESSION: Anginal symptomatology with significant disease of the LAD. We will proceed with PTCA stent of the LAD. TRANSINT:[id number] Voice Confirmation ID: [id number] DOCUMENT ID: [id number] ROXANNE MELCHOR MD at 1816 CC: [id number] DICTATION DATE: 12/22/17 1107 ELEVATOR CONDUCTOR: 12/22/17 1125 [address] [facility] [address] [place] [id number]
--- NOTE | ~2017-12-22 | HEMODYNAMI ---
PATIENT:GAGAN MIDDLETON MEDICAL RECORD: [id number] : 57 LOCATION:[facility] ADMISSION DATE: 12/22/17 Generatedon:12/22/201711:36 Patient name: GAGAN MIDDLETON Patient #: [id number] S SN: [id number] : 1955 Date of study: 12/22/2017 Page: Of Hemodynamic Procedure Report Patient Data Patient Demographics Procedure consent was obtained First Name: GAGAN Gender: Male Last Name: EMI : 1955 Middle Initial: R Age: 62 year(s) Patient #: [id number] Race: SSN: [id number] Additional ID: [id number] Contact details [address]: [address] [place] [address] State: [place] City: [place] Zip code: [address] Past Medical History Allergies Allergen Reaction Date Comments Reported Other allergy 12/22/2017 levaquin, latex Admission Admission Data Admission Date: 12/22/2017 Admission Time: 7:34 Lab Results Lab Result Date: 12/22/2017 Lab Result Time: 9:10 Biochemistry Name Units Result Min Max BUN mg/dl 7 --(*---)-- 7 18 Creatinine mg/dl 0.7 --(*---)-- 0.6 1.3 CBC Name Units Result Min Max Hematocrit % 37.6 *-(----)-- 42 54 Hemoglobin g/dl 13.1 -*(----)-- 13.5 17.5 Procedure Procedure Types Cath Procedure PCI Procedure Coronary Stent Coronary Stent Initial PTCA PTCA Additional Peripheral Cath Diagnostic Procedure Cath Peripheral Aazkz-Ifckhyz-Wrm-Off Peripheral vascular Intervention Stent Stent-Fem/Popw/plasty Procedure Description Procedure Date Procedure Date: 12/22/2017 Procedure Start Time: 11:09 Procedure End Time: 11:34 Procedure Staff Name Function Alex Metzger MD Performing Physician Warner Hermosillo RT Monitor Timur Ross RN Nurse Aranza Anglin RT Scrub Josue Fraire RT Valve Repairer Reclamation Procedure Data Cath Procedure Fluoroscopy Diagnostic fluoroscopy Total fluoroscopy Time: 6.2 time: 6.2 min min Diagnostic fluoroscopy Total fluoroscopy dose: 6.2 dose: 6.2 mGy mGy Contrast Material Contrast Material Type Amount (ml) Isovue 370 138 Entry Location Entry Primary Successful Side Size Upsize 1 Upsize Entry Closure Romero ccessful Closure Location (Fr) (Fr) 2 (Fr) Remarks Device Remarks Femoral Left 6 Fr 6 Fr 6 Fr Exoseal artery Short Mid-Length Short Estimated blood loss: 10 ml Diagnostic catheters Device Type Used For End Catheter Placement DIAGNOSTIC UF 5Fr Procedure catheter ([id number]) DIAGNOSTIC MPA-2 5Fr Procedure catheter ([id number]) Procedure Complications No complications Procedure Medications Medication Administration Route Dosage 0.9% NaCl I.V. 100 ml/hr Oxygen etCO2 Nasal cannula 2 l/min Heparin Flush Bag added to field 2 bags (1000units/500ml NS) Lidocaine 2% 20 Versed I.V. 2 mg Fentanyl I.V. 100 mcg Heparin Bolus I.V. 4000 units Fentanyl I.V. 50 mcg Hemodynamics Rest HGB: 13.1 (g/dl) Heart Rate: 57 (bpm) Snapshots Pre Cath Intra NCS Post Cath Vital Signs Time Heart Resp SPO2 etCO2 NIBP (mmHg) Rhythm Pain Sedation Rate (ipm) (%) (mmHg) Status Level (bpm) 10:54:53 56 21 97 0 130/83(103) NSR 0 (11) 10(A) , No pain 10:59:28 58 22 96 0 135/81(99) NSR 0 (11) 10(A) , No pain 11:04:06 54 16 95 0 114/73(96) NSR 0 (11) 10(A) , No pain 11:08:38 53 17 95 0 115/74(102) NSR 0 (11) 9(A) , No pain 11:13:11 56 13 95 0 113/74(93) NSR 0 (11) 9(A) , No pain 11:17:45 60 14 94 0 117/71(88) NSR 0 (11) 9(A) , No pain 11:22:20 58 13 96 0 114/72(107) NSR 0 (11) 9(A) , No pain 11:26:50 57 12 94 0 112/78(100) NSR 0 (11) 9(A) , No pain 11:31:21 58 15 95 0 111/74(96) NSR 0 (11) 9(A) , No pain Medications Time Medication Route Dose Verified Delivered Reason Notes Effectiveness by by 11:00:08 0.9% NaCl I.V. 100 Timur Timur Per physician ml/hr Vandana Ross RN RN 11:00:20 Oxygen etCO2 2 Timur Timur Per physician Nasal l/min Vandana Ross cannula RN RN 11:00:32 Heparin Flush added 2 Timur Timur used for Bag to bags Vandana Ross procedure (1000units/500ml field RN RN NS) 11:00:47 Lidocaine 2% 20ml Timur Timur for local vial Lorigan Vandana anesthetic RN RN 11:08:11 Versed I.V. 2 mg Timur Timur for sedation Vandana Ross RN RN 11:08:29 Fentanyl I.V. 100 Timur Timur for sedation mcg Vandana Ross RN RN 11:12:40 Heparin Bolus I.V. 4000 Timur Timur for units Lorigan Vandana anticoagulation RN RN 11:22:50 Fentanyl I.V. 50 Timur Timur for sedation mcg Vandana Ross RN rubber thread spooler Log Time Note 10:37:35 Time tracking: Regular hours (M-F 7:00 - 5:00) 10:37:41 Plan of Care:Hemodynamics will remain stable., Cardiac rhythm will remain stable., Comfort level will be maintained., Respiratory function will remain adequate., Patient/ family verbilizes understanding of procedure., Procedure tolerated without complication., Recovers from procedure without complications.. 10:40:43 Josue Fraire RT(R) sent for patient. Start room use. 10:48:55 Patient received from Pre/Post Procedure Room to CCL 1 Alert and oriented. Tansferred to table in Supine position. 10:48:56 Warm blankets applied, and eric hugger turned on for patient comfort. 10:48:56 Correct patient and procedure confirmed by team. 10:48:58 Signed procedure consent form obtained from patient. 10:48:59 ECG and BP/O2 sat monitors applied to patient. 10:49:00 Pre-procedure instructions explained to patient. 10:49:01 Pre-op teaching completed and patient verbalized understanding. 10:49:05 Family in waiting room. 10:49:07 Patient NPO since Midnight. 10:54:05 Vital chart was started 11:00:08 0.9% NaCl 100 ml/hr I.V. was administered by Timur Ross RN; Per physician; 11:00:20 Oxygen 2 l/min etCO2 Nasal cannula was administered by Timur Ross RN; Per physician; 11:00:32 Heparin Flush Bag (1000units/500ml NS) 2 bags added to field was administered by Timur Ross RN; used for procedure; 11:00:47 Lidocaine 2% 20ml vial was administered by Timur Ross RN; for local anesthetic; 11:01:00 Baseline sample Acquired. 11:01:06 Rhythm: sinus rhythm 11:01:09 Full Disclosure recording started 11:01:20 H&P Date Dictated: 12/22/2017 New H&P dictated by physician.. 11:01:37 Patient allergic to Other allergylevaquin, latex 11:01:39 Is the patient allergic to Iodine/contrast media? No. 11:01:40 Is patient on blood thinner?Yes 11:01:42 ACC The patient was administered the following blood thiners within the last 24 hours: ACCPlavix 11:01:47 Patient diabetic? No. 11:01:49 Previous problem with sedation/anesthesia? No ? 11:01:51 Snore? Yes 11:01:53 Sleep apnea? Yes 11:01:54 Deviated septum? No 11:01:55 Opens mouth fully? Yes 11:01:56 Sticks out tongue? Yes 11:02:01 Airway obstruction? Yes COPD 11:02:14 Dentures? Yes in tight 11:02:17 Pre procedure: right dorsailis pedis pulse 2+ Normal; easily identifiable; not easily obliterated 11:02:19 Pre procedure: left dorsailis pedis pulse 2+ Normal; easily identifiable; not easily obliterated 11:02:21 Patient pain scale 0/10 ?. 11:02:27 IV patent on arrival in right hand with 0.9% NaCl at [facility]. 11::22 Lab Result : BUN 7 mg/dl ::22 Lab Result : Creatinine 0.7 mg/dl 11:05:22 Lab Result : Hemoglobin 13.1 g/dl 11:05:22 Lab Result : Hematocrit 37.6 % 11:05:24 Lab results completed and on chart. 11:05:27 Left groin area was prepped with chlora-prep and draped in sterile fashion 11:: Alarms reviewed by R. N. 11:05:28 Sharps counted by scrub and verified by R.N. 11:05:34 ACIST Syringe (49053) opened to sterile field. 11:05:34 Bag Decanter (2002S) opened to sterile field. 11:05:35 Medline Cath Pack ([id number]) opened to sterile field. 11:05:36 ACIST Hand Control (90370) opened to sterile field. 11:05:36 ACIST Manifold (12969) opened to sterile field. 11:05:37 Tegaderm 4 x 4 (1626W) opened to sterile field. 11:05:39 DIAGNOSTIC WIRE .035 260cm J wire (760047) opened to sterile field. 11:05:50 SHEATH Prelude 6Fr 0.035 (MMJ-0W-02-035) opened to sterile field. 11:05:59 INFLATOR Merit BasixCompak (KJ9486) opened to sterile field. 11:06:00 CHOICE PT Extra Support 182cm wire ([id number]) opened to sterile field. 11:07:03 Zero performed for pressure channel P1 11:07:53 Physician arrived 11:07:54 --------ALL STOP TIME OUT------ 11:07:54 Final Timeout: patient, procedure, and site verified with staff and physician. All members of the team are in agreement. 11:07:56 Left groin site verified by team. 11:07:59 Physical assessment completed. ASA score P 3 - A patient with severe systemic disease as per Alex Metzger MD. 11:08:01 Sedation plan: IV Moderate Sedation Medication:Versed, Fentanyl 11:08:11 Versed 2 mg I.V. was administered by Timur Ross RN; for sedation; 11:08:29 Fentanyl 100 mcg I.V. was administered by Timur Ross RN; for sedation; 11:09:32 Procedure started. 11:09:36 Local anesthetic to left femerol artery with Lidocaine 2% by Alex Metzger MD.INITIAL ACCESS ONLY 11:09:45 A 6 Fr Short sheath was inserted into the Left Femoral artery 11:11:35 GUIDE 6FR EBU 3.5 catheter ([id number]) opened to sterile field. 11:11:45 6 Fr ebu 3.5 guide catheter was inserted over the wire 11:12:06 choice pt es wire advanced. 11:12:35 Wire advanced across lesion. 11:12:40 Heparin Bolus 4000 units I.V. was administered by Timur Ross RN; for anticoagulation; 11:13:15 Place stent Inflation Number: 1 A DONTE RX 3.0 x 15 stent ([id number]) was prepped and advanced across the Prox LAD. The stent was deployed at 19 PATY for 0:10 (min:sec). 11:13:34 Stent catheter was removed intact over wire. 11:13:37 Wire redirected to diag. 11:15:19 Inflate balloon Inflation number: 1 A EUPHORA 2.0 x 10 Balloon ([id number]) was prepped and advanced across the 1st Diag, then inflated to 13 PATY for 0:10 (min:sec). 11:15:25 Inflation number: 2 The EUPHORA 2.0 x 10 Balloon ([id number]) was reinflated across the 1st Diag, to 17 PATY for 0:10 (min:sec). 11:15:41 Balloon removed over the wire. 11:15:45 Wire removed. 11:15:46 Guide catheter removed. 11:15:52 A DIAGNOSTIC UF 5Fr catheter ([id number]) was advanced over the wire and used for Procedure. 11:16:44 Abdominal angiogram w/ runoff was performed. 11:16:53 Left leg runoff performed. 11:17:08 Right leg runoff performed. 11:17:35 SHEATH 6FR Destination (RSR01) opened to sterile field. 11:18:46 GLIDE WIRE Super Stiff Angled 260cm (SF8527) opened to sterile field. 11:18:56 glide wire advanced around horn. 11:19:09 Catheter removed. 11:19:16 Sheath upsized to a 6 Fr Mid-Length. 11:20:16 A DIAGNOSTIC MPA-2 5Fr catheter ([id number]) was advanced over the wire and used for Procedure. 11:20:18 Catheter removed. 11:21:08 CHOICE PT Extra Support J 300cm guide wire ([id number]) opened to sterile field. 11:21:50 Procedure type changed to Cath procedure, PCI procedure, Coronary Stent, Coronary Stent Initial, PTCA, PTCA Additional, Peripheral Cath Diagnostic Procedure, Cath Peripheral, Gkabo-Amizbqc-Ttf-Off, Peripheral vascular Intervention, Stent, Stent-Fem/Popw/plasty 11:22:20 glide wire removed. 11:22:24 choice pt es wire advanced. 11:22:50 Fentanyl 50 mcg I.V. was administered by Timur Ross RN; for sedation; 11:23:32 Inflate balloon Inflation number: 1 A POWERFLEX PRO 5.0 x 40 x 135cm balloon ([id number]) was prepped and advanced across the Proximal Superficial Femoral, Right, then inflated to 7 PATY for 0:10 (min:sec). 11:26:14 Balloon re-inserted over wire. 11:27:00 SMART 6 X 60 X 120 stent ([id number]) was deployed across Proximal Superficial Femoral, Right . 11:27:25 Stent catheter was removed intact over wire. 11:27:36 Inflation number: 2 The POWERFLEX PRO 5.0 x 40 x 135cm balloon ([id number]) was reinflated across the Proximal Superficial Femoral, Right, to 13 PATY for 0:08 (min:sec). 11:28:05 Balloon removed over the wire. 11:28:06 Wire removed. 11:28:12 glide wire wire advanced. 11:28:23 Sheath upsized to a 6 Fr Short. 11:28:30 EXOSEAL 6Fr (EX600) opened to sterile field. 11:28:38 Sheath removed intact; hemostasis achieved with Exoseal to the Left Femoral artery. 11:28:40 Procedure ended.(Physican Out) 11:29:46 Fluoroscopy time 06.20 minutes. 11:30:09 Flurop Dose total: 6.2 11:30:09 Fluoroscopy dose: 6.2 mGy 11:30:13 Contrast amount:Isovue 370 138ml. 11:30:15 Sharps counted by scrub and verified by R.N. 11:30:16 Insertion/operative site no bleeding no hematoma. 11:30:18 Post-op/insertion site Left Femoral artery dressed using a 4 x 4 and Tegaderm. 11:30:23 Post left femerol artery:stable, soft, clean and dry 11:30:25 Post Procedure Pulses reassessed and unchanged 11:30:27 Post-procedure physical assessment completed. ASA score P 3 - A patient with severe systemic disease as per Alex Metzger MD. 11:30:42 Post procedure rhythm: unchanged. 11:30:45 Estimated blood loss: 10 ml 11:30:45 Post procedure instruction explained to patient.Patient verbalizes understanding. 11:30:46 Patient needs reinforcement of post procedure teaching. 11:34:14 Procedure and supply charges have been captured, reviewed, submitted and are correct. 11:34:15 Procedure Complication : No complications 11:34:17 Vital chart was stopped 11:34:28 See physician's report for complete and final results. 11:34:31 Report given to Pre/Post Procedure Room. 11:34:33 Patient transfered to Pre/Post Procedure Room with Stretcher. 11:34:35 Procedure ended. 11:34:35 Full Disclosure recording stopped 11:34:39 End room use (Document Last) Intervention Summary Intervention Notes Time ActionType Lesion and Equipment Used Action# Pressure Duration Attributes 11:13:15 Place stent Prox LAD DONTE RX 3.0 x 1 19 00:10 15 stent ([id number]) 11:15:19 Inflate 1st Diag EUPHORA 2.0 x 1 13 00:10 balloon 10 Balloon ([id number]) 11:15:25 Reinflate 1st Diag EUPHORA 2.0 x 2 17 00:10 balloon 10 Balloon ([id number]) 11:23:32 Inflate Proximal POWERFLEX PRO 1 7 00:10 balloon Superficial 5.0 x 40 x Femoral, 135cm balloon Right ([id number]) 11:27:00 Deploy self Proximal SMART 6 X 60 X 1 expanding Superficial 120 stent stent Femoral, ([id number]) Right 11:27:36 Reinflate Proximal POWERFLEX PRO 2 13 00:08 balloon Superficial 5.0 x 40 x Femoral, 135cm balloon Right ([id number]) Device Usage Item Name Manufacture Quantity Catalog Number Hospital Part Current Minimal Lot# / Charge Number Stock Stock Serial# Code ACIST Syringe Acist 1 44623 002419 461157 105066 20 (36459) [employer] Bag Decanter Microtek 1 2001S 140241 39885 039460 5 (2001S) Medical Inc. Medline Cath Cardinal 1 [id number] 293098 37592 757409 5 Pack Health ([id number]) ACIST Hand Acist 1 54872 602980 064492 855619 5 Control (58722) [employer] ACIST Manifold Acist 1 95121 546141 973270 369060 5 (51638) [employer] Tegaderm 4 x 4 3M 1 1626W 551511 737369 886077 5 (1626W) DIAGNOSTIC WIRE [facility] [place] 1 273498 259445 206448 581771 30 .035 260cm J wire (885315) SHEATH Prelude Merit 1 IAT-0B-36-35 509789 2421520 386671 5 6Fr 0.035 Medical (BAL-0P-15-035) INFLATOR Merit Merit 1 ZR9158 430429 905058 917292 15 BasixMotosmarty Medical (SJ5845) CHOICE PT Extra [place] 1 [id number] 140692 448039 327828 5 Support 182cm Scientific wire ([id number]) GUIDE 6FR EBU Medtronic 1 [id number] 494408 27088 893088 3 3.5 catheter (FU6FQJ26) DONTE RX 3.0 x Medtronic 1 [id number] 450305 7416473 880912 5 [id number] 15 stent ([id number]) EUPHORA 2.0 x Medtronic 1 [id number] 611160 658036 178692 5 [id number] 10 Balloon ([id number]) DIAGNOSTIC UF Cardinal 1 357537O9 752286 747123 537804 10 5Fr catheter Health (125219E5) SHEATH 6FR Terumo 1 RSR01 592584 68429 532697 5 Destination (RSR01) GLIDE WIRE Terumo 1 GG8553 941075 830917 764987 5 Super Stiff Angled 260cm (HC0629) DIAGNOSTIC Cardinal 1 [id number] 643063 472687 174981 5 MPA-2 5Fr Health catheter (023348M) CHOICE PT Extra [place] 1 [id number] 383421 849233 749253 5 Support J 300cm Scientific guide wire (6851471O3) POWERFLEX PRO Cardinal 1 [id number] 756228 993628 354005 5 5.0 x 40 x Health 135cm balloon ([id number]) SMART 6 X 60 X Cardinal 1 [id number] 847925 199091 0 [id number] 120 stent Health ([id number]) EXOSEAL 6Fr Cardinal 1 EX600 000185 143565 808886 10 (EX600) Health Signature Audit [place] Stage Time Signature Unsigned Intra-Procedure 12/22/2017 Warner Hermosillo 11:36:27 AM RT(R) Signatures Monitor : Warner Hermosillo RT Signature : Date : Time : [id number] [place] [address]
[~2017-12-22 07:34] MED LIST changes: +CYCLOBENZAPRINE10 MG PO; +IMITREX50 MG PO; +KEPPRA750 MG PO; +KLOR-CON20 MEQ/PKT PO; +MAG-OX 400 MG400 MG PO; +NEURONTIN 400400 MG PO; +PROCARDIA10 MG PO; +SYMBICORT 16010.2 GM INH; +VOLTAREN100 GM TOPICAL; +ZANAFLEX2 M1 PO
[2017-12-22 09:19] VITALS: BP 112/70; Ht 177.8 cm; Wt 86.4 kg
[2017-12-22 09:51] LABS: BASOPHILS 0.2 % (0-2); HEMATOCRIT 37.6 % (42.0-54.0); HEMOGLOBIN 13.1 g/dL (13.5-17.5); IMMATURE GRANULOCYTES 0.9 % (0-5); LYMPHOCYTES 14.4 % (15-50); MCH 32.6 pg (26.0-34.0); MCHC 34.8 g/dL (31.0-37.0); MCV 93.5 fL (80.0-100.0); MEAN PLATELET VOLUME 9.8 fL (7.4-10.4); MONOCYTES 6.9 % (2-11); NEUTROPHILS 76.6 % (40-80); PLATELET COUNT 180 10x3/uL (130-400); RBC 4.02 10x6/uL (4.20-6.10); RDW 17.7 % (11.5-14.5); WBC 11.1 10x3/uL (4.8-10.8)
[2017-12-22 10:09] LABS: CALC OSMOLALITY 277 mosm/kg (275-300); CALCIUM 7.8 mg/dL (8.5-10.1); CARBON DIOXIDE 32.7 mmol/L (21.0-32.0); CHLORIDE - SERUM 101 mmol/L (98-107); CREATININE - SERUM 0.7 mg/dL (0.6-1.3); GLUCOSE 131 mg/dL (74-106); POTASSIUM - SERUM 4.4 mmol/L (3.5-5.1); SODIUM 139 mmol/L (136-145); UREA NITROGEN 7 mg/dL (7-18); eGFR NON AFRICAN AMERICAN > 90 mL/min (90-120)
== END | disposition home or self-care (01) ==
LOC: D.CATH 07:34
PROVIDERS: Internal Medicine Interventional Cardiology
DX: I25.119 Atherosclerotic heart disease of native coronary artery with unspecified angina pectoris (principal); I70.211 Atherosclerosis of native arteries of extremities with intermittent claudication, right leg; Z95.5 Presence of coronary angioplasty implant and graft; I10 Essential (primary) hypertension; E78.5 Hyperlipidemia, unspecified; Z01.812 Encounter for preprocedural laboratory examination

== ENCOUNTER → 2018-03-20 12:23 | Outpatient (CLI) | payer MEDICAID ==
[2017-12-22 09:19] VITALS: BMI 27.3
== END | disposition home or self-care (01) ==
LOC: D.LAB 12:23 → D.RT 12:23
DX: J44.9 Chronic obstructive pulmonary disease, unspecified (principal)

== ENCOUNTER → 2018-06-04 13:52 | Outpatient (CLI) | payer MEDICAID ==
[2017-12-22 09:19] VITALS: BMI 27.3
== END | disposition home or self-care (01) ==
LOC: D.CT 13:52
DX: R51 Headache (principal); S09.90XA Unspecified injury of head, initial encounter; X58.XXXA Exposure to other specified factors, initial encounter; R10.2 Pelvic and perineal pain; M25.551 Pain in right hip